=== PATIENT | female | born 1930 | race Caucasian/White ===

== ENCOUNTER → 2017-05-10 | Outpatient (CLI) | payer MEDICARE, MEDICAID ==
[~2017-05-10] MED LIST: ACET325T38 PO; ALPR0.254 PO; AMIO200T2 PO; APIX5TAB PO; ASP325T PO; ASPI-808 PO; CHLO4TAB PO; CHOL400T3 PO; CRAN1CAP5 PO; CYAN10007 PO; CYAN500L PO; ESTR10TA VG; FAMO1TAB21 PO; GLUC1CAP37 PO; LORA10TA7 PO; MAGN250T13 PO; METO-333 PO; MULT-63 PO; MULT-974 PO; MV-M1TAB27 PO; OMEG-25 PO
== END ==
LOC: CARD 08:42
PROVIDERS: ATTEND Internal Medicine Cardiovascular Disease
DX: I48.1 Persistent atrial fibrillation (principal); I25.10 Atherosclerotic heart disease of native coronary artery without angina pectoris; R07.89 Other chest pain; R00.2 Palpitations
CPT/HCPCS: 93306

== ENCOUNTER → 2017-11-22 | Outpatient (CLI) | payer MEDICARE, MEDICAID ==
--- NOTE | 2017-11-22 15:08 | Diagnostic Imaging Report ---
INDICATION: Routine screening. COMPARISON: 02/09/2016 and 02/16/2014. TECHNIQUE: Screening digital mammography was performed bilaterally with a Computer Aided Detection (CAD) system. FINDINGS: Moderate parenchymal density is noted bilaterally. The right breast is stable. There is a nodular density in the retroareolar left breast which also appears stable and likely benign. There is a density noted at mid depth in the left breast inferiorly which appears more prominent when compared with the prior exams. Additional views are recommended. No suspicious calcifications are seen. The axillae are unremarkable. IMPRESSION: Left breast density. Additional views are recommended. ACR BI-RADS Category 0: Incomplete. (Needs additional imaging evaluation). Result letter will be mailed to the patient. Note: At least 10% of breast cancer is not imaged by mammography. Dictated by: Dictated on workstation # [id number]
== END ==
LOC: RAD 10:44
PROVIDERS: ATTEND Nurse Practitioner Family
DX: Z12.31 Encounter for screening mammogram for malignant neoplasm of breast (principal)
CPT/HCPCS: 77067

== ENCOUNTER → 2017-12-06 | Outpatient (CLI) | payer MEDICARE, MEDICAID ==
--- NOTE | 2017-12-06 12:07 | Diagnostic Imaging Report ---
Indication: Left breast density. Patient presents for additional views. Comparison is made with recent screening study from 11/22/2017. Patient return in a 3-D 90 degree lateral view as well as spot compression CC and ML 3-D mammography was performed. The current study was also evaluated with a Computer Aided Detection (CAD) system. There is a persistent fairly well circumscribed nodular density in the inferior left breast approximately 6 clock location 5 cm from the nipple. No associated calcifications are seen. IMPRESSION: BI-RADS zero Persistent circumscribed nodular density 6 o'clock location of the left breast 5 cm from the nipple. Further evaluation with ultrasound is recommended. ACR BI-RADS Category 0: Incomplete. (Needs additional imaging evaluation). Result letter will be mailed to the patient. Note: At least 10% of breast cancer is not imaged by mammography. Dictated by: Dictated on workstation # [id number]
--- NOTE | 2017-12-06 12:08 | Diagnostic Imaging Report ---
Indication: Left breast density. This study is performed for further evaluation. Correlation is made with diagnostic mammogram earlier same day. Sonographic interrogation of the inferior left breast was performed. There is a simple cyst at the 6 o'clock location of the left breast approximately 5 mm x 5 mm in diameter. This likely accounts for the mammographic density. No solid masses are seen. IMPRESSION: Simple cyst left breast 6 o'clock location, likely accounting for the mammographic density. The patient may return to routine annual screening mammography. BI-RADS category 2 ACR BI-RADS Category 2: Benign findings. Dictated by: Dictated on workstation # [id number]
== END ==
LOC: RAD 10:34
PROVIDERS: ATTEND Nurse Practitioner Family
DX: N60.02 Solitary cyst of left breast (principal)
CPT/HCPCS: 76642

== ENCOUNTER → 2019-05-26 | Outpatient (CLI) | payer MEDICARE, MEDICAID ==
[~2019-05-26] MED LIST changes: -AMIO200T2 PO; +AMIO200T4 PO
--- NOTE | 2019-05-27 18:29 | Diagnostic Imaging Report ---
EXAMINATION: Digital mammogram bilateral screening. The current study was also evaluated with a Computer Aided Detection (CAD) system. 3-D tomosynthesis was also performed and reviewed. INDICATION: Screening. COMPARISON: This study was compared to the prior exams of 11/22/2017, 02/29/2016 and 02/16/2014. At this time, there are no current complaints. FINDINGS: The fibroglandular tissue in both breasts is heterogeneously dense. This does limit the sensitivity of this exam. Overall, there does not appear to have been any significant change when compared to the prior study. No primary or secondary sign of malignancy is noted. 3D tomographic images fail to show any sign of malignancy. The loop recorder device overlying the left breast seen previously is again evident. IMPRESSION: There is no radiographic evidence for malignancy. ACR BI-RADS Category 1: Negative. Result letter will be mailed to the patient. Note: At least 10% of breast cancer is not imaged by mammography. Dictated by: Dictated on workstation # [id number]
== END ==
LOC: RAD 10:01
PROVIDERS: ATTEND Obstetrics & Gynecology
DX: Z12.31 Encounter for screening mammogram for malignant neoplasm of breast (principal)
CPT/HCPCS: 77067

== ENCOUNTER → 2021-02-22 | Outpatient (CLI) | payer MEDICARE, MEDICAID ==
[~2021-02-22] VITALS: Ht 165 cm; Wt 74.0 kg
[~2021-02-22] MED LIST changes: +ALPR.25T PO; -ALPR0.254 PO; -AMIO200T4 PO; +AMIO200T6 PO; +CATHETER FLUSH 10 ML SYR IV PRN; +REGADENOSON 0.4 MG/5 ML SYR (LEXISCAN) IV ONE
[2021-02-22 13:54] VITALS: BP 173/64
[2021-02-22 14:01] VITALS: BP 128/51
--- NOTE | 2021-02-22 15:36 | Cardiology Stress Test Report ---
Stress Test Report Date of Procedure/Referring: Date of Procedure: Feb 22, 2021 Krystal Ruiz Admitting Physician Valeria Rivera MD Indications: a fib Baseline Heart Rate: 53 Baseline Blood Pressure: Blood Pressure Systolic: 128 Blood Pressure Diastolic: 51 Baseline Vitals Vital Signs Date Time Temp Pulse Resp B/P (MAP) Pulse Ox O2 Delivery O2 Flow Rate FiO2 02/22/21 13:54 63 18 173/64 (100) 98 Room Air Baseline EKG: Baseline EKG: Normal sinus rhythm Summary After explaining the procedure to the patient, she signed a consent and then brought to the stress nuclear laboratory. Patient received 0.4 mg Lexiscan for stress test, ECG, heart rate and blood pressure were monitored continuously. Resting and stress dose of radio tracer were injected, imaging was acquired and reviewed in short axis, horizontal long axis and vertical long axis views. TID: 0.95 SSS: 7 SDS: 4 EF: 77 1. Patient tolerated Lexiscan well 2. Breast attenuation with typical female pattern, no ischemia or infarction were noted on SPECT images 3. Normal left ventricular size, EF 77% HERBER BADILLO MD Feb 22, 2021 15:36
== END ==
LOC: CARD 11:23
PROVIDERS: ATTEND Physician Assistant
DX: I08.3 Combined rheumatic disorders of mitral, aortic and tricuspid valves (principal); I48.0 Paroxysmal atrial fibrillation; I11.9 Hypertensive heart disease without heart failure; E78.2 Mixed hyperlipidemia
CPT/HCPCS: 78452; 93017; 93306

== ENCOUNTER 2021-02-27 09:45 | Day surgery (SDC) | payer MEDICARE, MEDICAID ==
[~2021-02-27] VITALS: Ht 165 cm; Wt 74.0 kg
[~2021-02-27 09:45] MED LIST changes: -CATHETER FLUSH 10 ML SYR IV PRN; -REGADENOSON 0.4 MG/5 ML SYR (LEXISCAN) IV ONE
[2021-02-27] MEDS ORDERED: LIDOCAINE 1% INJ 20 ML 20 ML VIAL ONE (09:48)
[2021-02-27 10:07] VITALS: BP 144/85
--- NOTE | 2021-02-27 11:38 | Implantation of Loop Monitor ---
Implant of Loop Monitior IMPLANTATION OF LOOP MONITOR REPORT DATE OF PROCEDURE: 02/27/21 PREOP DIAGNOSIS: Paroxysmal atrial fibrillation POSTOP DIAGNOSIS: Paroxysmal atrial fibrillation PROCEDURE DETAILS: The patient is a 89 female with history of paroxysmal atrial fibrillation requiring long-term surveillance. Therefore implantable loop recorder was discussed and agreed with the patient. Informed consent was taken. All risks and complications were discussed at length. The patient was draped and prepped in the usual sterile fashion. Local anesthesia was lidocaine, which was given in the substernal area close to the 4th intercostal space. Loop monitor [employer] with serial number [id number] was implanted according to the protocol. Steri- Strips were placed at the end of the procedure. There were no complications and the patient tolerated the procedure well. ANESTHESIA: Local anesthesia with lidocaine. COMPLICATIONS: None CONTRAST/FLUOROSCOPY: None CONCLUSION: Successful implantation of loop monitor with no complication FINAL DIAGNOSIS: Paroxysmal atrial fibrillation Palpitation Hypertension Hyperlipidemia HERBER BADILLO MD Feb 27, 2021 11:38 am
== END 2021-02-27 11:45 | disposition home or self-care (01) ==
LOC: CATH 09:45
PROVIDERS: ATTEND Internal Medicine Cardiovascular Disease
DX: I48.0 Paroxysmal atrial fibrillation (principal); I10 Essential (primary) hypertension; G47.33 Obstructive sleep apnea (adult) (pediatric); G47.10 Hypersomnia, unspecified; I48.19 Other persistent atrial fibrillation; K21.9 Gastro-esophageal reflux disease without esophagitis; I65.23 Occlusion and stenosis of bilateral carotid arteries; E78.2 Mixed hyperlipidemia; F41.9 Anxiety disorder, unspecified; E66.9 Obesity, unspecified; Z68.27 Body mass index [BMI] 27.0-27.9, adult; Z79.82 Long term (current) use of aspirin; Z79.899 Other long term (current) drug therapy; Z88.8 Allergy status to other drugs, medicaments and biological substances; Z88.1 Allergy status to other antibiotic agents; Z88.2 Allergy status to sulfonamides; Z87.891 Personal history of nicotine dependence; Z83.3 Family history of diabetes mellitus; Z80.9 Family history of malignant neoplasm, unspecified
CPT/HCPCS: 33285

== ENCOUNTER 2021-11-14 13:34 | Inpatient (IN) | payer MEDICARE, MEDICAID ==
[~2021-11-14] VITALS: Ht 165 cm; Wt 76.9 kg
[~2021-11-14 13:34] MED LIST changes: -AMIO200T6 PO; +AMIO200T65 PO
--- NOTE | 2021-11-14 13:54 | ED Fall/Injury ---
General Stated Complaint: L FEMUR PAIN , FALL Source: patient Exam Limitations: no limitations (RIC BHAGAT STUDENT) History of Present Illness Date Seen by Provider: Nov 14, 2021 Time Seen by Provider: 13:40 Initial Comments Ms. Crocker is an 89yoF who presents via EMS with L hip pain after falling around 1245 while putting on her shoe. She did not hit her head, lose consciousness, or sustain any other injuries during fall. She is active and lives alone with frequent assistance from an "elderly care company". She has never had any other falls. Patient reports no prior surgical history and has history of afib status post cardioversion 11/2015. She takes Metoprolol, ASA and Multaq daily. Patient is in significant pain and has been given Fentanyl for pain control before full examination is completed. Severity: moderate Injuries/Pain Location: lower extremity (left hip) Context: lost balance Loss of Consciousness: no loss of consciousness Modifying Factors: Improves With Movement Associated Symptoms (Fall): No Abdominal Pain, No Chest Pain, No Dizziness, No Headache, No Neck Pain, No Shortness of Air (RIC BHAGAT STUDENT) Allergies and Home Medications Allergies Coded Allergies: Paroxetine (Unverified Allergy, Mild, HIVES, 04/27/14) esomeprazole (Unverified Allergy, Mild, HIVES, 04/27/14) Patient Home Medication List Home Medication List Reviewed: Yes (JESSICA GRANGER MD) ALPRAZolam (Xanax Tablet) 0.25 Mg Tablet, 0.25 MG PO HS PRN for ANXIETY, (Reported) Entered as Reported by: LUIS F ROBERTS on 09/14/15 1038 Amiodarone HCl (Amiodarone HCl) 200 Mg Tablet, 200 MG PO DAILY, (Reported) Entered as Reported by: LUIS F ROBERTS on 11/30/15 0918 Apixaban (Eliquis) 5 Mg Tablet, 5 MG PO BID, (Reported) Entered as Reported by: LUIS F ROBERTS on 09/14/15 1038 Chlorpheniramine Maleate (Chlor-Trimeton) 4 Mg Tablet, 4 MG PO HS, (Reported) Entered as Reported by: LUIS F ROBERTS on 09/14/15 1038 Cranberry Extract/Vit C (Azo Cranberry Softgel) 1 Each Capsule, 2 CAP PO HS PRN for URINARY HEALTH, (Reported) Entered as Reported by: RIC MERA on 04/27/14 1433 Cyanocobalamin (Vitamin B-12) (Vitamin B-12) 500 Mcg Lozenge, 1,000 MCG PO DAILY, (Reported) Entered as Reported by: LUIS F ROBERTS on 09/14/15 1038 Estradiol (Vagifem) 10 Mcg Tablet, 10 MCG VG THUR, (Reported) Entered as Reported by: RIC MERA on 04/27/14 1427 Famotidine/Calcium Carb/Mag (Pepcid Complete Tablet Chew) 1 Each Tab.chew, 1 TAB PO DAILY PRN for HEART BURN, (Reported) Entered as Reported by: RIC MERA on 04/27/14 1433 Glucosa Little 2Kcl/Chondroitin Little (Glucosamine & Chondroitin Cap) 1 Each Capsule, 1 CAP PO DAILY, (Reported) Entered as Reported by: LUIS F ROBERTS on 11/30/15 0918 Magnesium Oxide (Magnesium) 250 Mg Tablet, 250 MG PO DAILY, (Reported) Entered as Reported by: LUIS F ROBERTS on 09/14/15 1038 Metoprolol Tartrate (Metoprolol Tartrate) 25 Mg Tablet, 25 MG PO BID, (Reported) Entered as Reported by: LUIS F ROBERTS on 09/14/15 1038 Multivitamin (Multivitamins) 1 Each Tab.chew, 2 TAB.CHEW PO DAILY, (Reported) Entered as Reported by: LUIS F ROBERTS on 09/14/15 1038 Mv-Min/Vit C/Glu/Brisa HCl/Hc124 (Airborne Tablet Chewable) 1 Each Tab.chew, 1 TAB PO DAILY PRN for BOOST IMMUNE SYSTEM, (Reported) Entered as Reported by: RIC MERA on 04/27/14 1435 Braman-3S/Dha/Epa/Fish Oil (Fish Oil EC 1,200 mg Softgel) 1 Each Capsule.dr, 1 CAP PO DAILY, (Reported) Entered as Reported by: LUIS F ROBERTS on 09/14/15 1038 Review of Systems Review of Systems Constitutional: No chills, No dizziness, No fever, No weakness Eyes: Denies Blurred Vision, Denies Vision Changes Ears, Nose, Mouth, Throat: denies ear pain, denies epistaxis Respiratory: No cough, No short of breath, No wheezing Cardiovascular: No chest pain, No palpitations Gastrointestinal: No diarrhea, No loss of appetite, No vomiting Genitourinary: No frequency, No hematuria Musculoskeletal: No back pain; other (severe left hip pain) Skin: no symptoms reported Psychiatric/Neurological: Denies Anxiety, Denies Depressed, Denies Numbness, Denies Paresthesia (RIC BHAGAT Illumagear STUDENT) Past Mpdkwmo-Tkrtig-Ixsxrt Hx Past Medical History Respiratory: No Cardiac: Yes Gastrointestinal: No Gastroesophageal Reflux Cancer: No (RIC BHAGAT Illumage[employer] STUDENT) Physical Exam Vital Signs Vital Signs - First Documented 11/14/21 13:35 Temp 36.5 Pulse 54 Resp 18 B/P (MAP) 164/81 (108) Pulse Ox 96 O2 Delivery Room Air (JESSICA GRANGER MD) Vital Signs Capillary Refill : (RIC BHAGAT STUDENT) Height, Weight, BMI Height: 5'5.00" Weight: 170lbs. oz. 77.390618jf; 27.18 BMI Method: General Appearance: WD/WN, no apparent distress HEENT: PERRL/EOMI, pharynx normal Neck: non-tender, supple, normal inspection Cardiovascular: normal peripheral pulses, regular rate, rhythm, no murmur Respiratory: chest non-tender, lungs clear, normal breath sounds, no respiratory distress, no accessory muscle use Gastrointestinal: normal bowel sounds, non tender, soft Neurologic/Psychiatric: contract clerk automobile II-XII nml as tested, no motor/sensory deficits, alert, normal mood/affect, oriented x 3 Skin: normal color, warm/dry Lymphatic: no adenopathy (RIC BHAGAT Illumagear STUDENT) Progress/Results/Core Measures Results/Orders Lab Results Laboratory Tests Test 11/14/21 13:48 Range/Units White Blood Count 5.8 4.3-11.0 10^3/uL Red Blood Count 4.02 3.80-5.11 10^6/uL Hemoglobin 13.2 11.5-16.0 g/dL Hematocrit 38 35-52 % Mean Corpuscular Volume 95 80-99 fL Mean Corpuscular Hemoglobin 33 25-34 pg Mean Corpuscular Hemoglobin Concent 35 32-36 g/dL Red Cell Distribution Width 12.4 10.0-14.5 % Platelet Count 143 130-400 10^3/uL Mean Platelet Volume 9.5 9.0-12.2 fL Immature Granulocyte % (Auto) 1 % Neutrophils (%) (Auto) 62 42-75 % Lymphocytes (%) (Auto) 27 12-44 % Monocytes (%) (Auto) 8 0-12 % Eosinophils (%) (Auto) 2 0-10 % Basophils (%) (Auto) 1 0-10 % Neutrophils # (Auto) 3.6 1.8-7.8 10^3/uL Lymphocytes # (Auto) 1.5 1.0-4.0 10^3/uL Monocytes # (Auto) 0.5 0.0-1.0 10^3/uL Eosinophils # (Auto) 0.1 0.0-0.3 10^3/uL Basophils # (Auto) 0.0 0.0-0.1 10^3/uL Immature Granulocyte # (Auto) 0.0 0.0-0.1 10^3/uL Percent Immature Platelet Fraction 1.5 0.0-7.6 % Sodium Level 134 L 135-145 MMOL/L Potassium Level 3.9 3.6-5.0 MMOL/L Chloride Level 99 98-107 MMOL/L Carbon Dioxide Level 24 21-32 MMOL/L Anion Gap 11 5-14 MMOL/L Blood Urea Nitrogen 15 7-18 MG/DL Creatinine 0.89 0.60-1.30 MG/DL Estimat Glomerular Filtration Rate 60 BUN/Creatinine Ratio 17 Glucose Level 104 70-105 MG/DL Calcium Level 9.0 8.5-10.1 MG/DL (JESSICA GRANGER MD) My Orders Orders - JESSICA GRANGER MD Ed Iv/Invasive Line Start (11/14/21 13:48) Cbc With Automated Diff (11/14/21 13:48) Basic Metabolic Panel (11/14/21 13:48) Pelvis With Left Hip 2-3 Views (11/14/21 13:48) Chest 1 View, Ap/Pa Only (11/14/21 13:48) Ekg Tracing (11/14/21 13:48) Fentanyl Inj (Sublimaze Injection) (11/14/21 14:00) Ondansetron Injection (Zofran Injectio (11/14/21 14:00) Fentanyl Inj (Sublimaze Injection) (11/14/21 14:38) (JESSICA GRANGER MD) Medications Given in ED Current Medications Medications Dose Ordered Sig/Kirk Route Start Time Stop Time Status Last Admin Dose Admin Fentanyl Citrate 50 mcg ONCE ONCE IVP 11/14/21 14:00 11/14/21 14:01 DC 11/14/21 13:53 50 MCG Ondansetron HCl 4 mg ONCE ONCE IVP 11/14/21 14:00 11/14/21 14:01 DC 11/14/21 14:02 4 MG (JESSICA GRANGER MD) Vital Signs/I&O 11/14/21 13:35 Temp 36.5 Pulse 54 Resp 18 B/P (MAP) 164/81 (108) Pulse Ox 96 O2 Delivery Room Air (JESSICA GRANGER MD) Progress Progress Note : Time: 15:30 Progress Note 89-year-old female presents with a mechanical trip and fall onto her left hip. Did not hit her head, no loss of consciousness. No other complaints of recent illness or injury. Significant pain noted to the left hip with out any bruising, lacerations or abrasion. Distal neurovascularly intact to the left hip. Left leg is held in flexion and external rotation. She has required several doses of IV fentanyl to achieve modest pain relief. X-rays reviewed, left femoral neck fracture that appears slightly impacted. Case was discussed with Dr. Morales and the patient's primary care physician, Dr. Rivera. Patient will be given some IV fluids, n.p.o. after midnight. I have discussed findings with the patient as well as her daughter who is at the bedside. All questions are sought and answered. Of note patient is a Christianity, declines blood products. Is also a DNR. (JESSICA GRANGER MD) Initial ECG Impression Date: Nov 14, 2021 Initial ECG Impression Time: 14:00 Initial ECG Rate: 52 Initial ECG Rhythm: S.Charanjit Initial ECG Intervals NM interval 236 QRS 104 QTc 423 Comment First-degree AV block, nonspecific ST-T wave changes over the precordium minimal depression in leads V5 and V6, artifact at the baseline V4 precludes interpretation. PACs noted (JESSICA GRANGER MD) Diagnostic Imaging Diagonstic Imaging: Xray Comments [facility] [place] [place] NAME: WILLA CROCKER REC#: [id number] PT STATUS: REG ER : 1930 PHYSICIAN: JESSICA GRANGER MD ADMIT DATE: 11/14/21/ER Draft Date of Exam:11/14/21 PELVIS WITH LEFT HIP 2-3 VIEWS INDICATION: Fall with left hip pain AP pelvis and AP and lateral views of the left hip are obtained at 02:38 p.m. There is an acute displaced fracture of the left femoral neck, with lateral superior displacement of the distal fragment relative to the proximal fragment. There is underlying osteopenia. There are degenerative changes in both hips of moderate severity. IMPRESSION: Acute femoral neck fracture on the left side, as described above. Dictated on workstation # [id number] Dict: 11/14/21 144 Trans: 11/14/21 1445 [facility] [id number] Interpreted by: LIANET MORALES MD Electronically signed by: [place]AR[place], [place] NAME: WILLA CROCKER [facility] REC#: [id number] PT STATUS: REG ER : 1930 PHYSICIAN: JESSICA GRANGER MD ADMIT DATE: 11/14/21/ER Draft Date of Exam:11/14/21 CHEST 1 VIEW, AP/PA ONLY EXAM: CHEST 1 VIEW, AP/PA ONLY. INDICATION: Fall. Left hip pain. COMPARISON: 11/30/2015. FINDINGS: Normal heart size and central pulmonary vascularity. Calcified aorta. Implanted loop recorder. No pleural effusion or pneumothorax. No acute osseous findings. IMPRESSION: No acute cardiopulmonary findings. Dictated on workstation # [id number] Dict: 11/14/21 144 Trans: 11/14/21 144 [id number] Interpreted by: TSERING JACKSON MD Electronically signed by: (JESSICA GRANGER MD) Departure Communication (Admissions) Time/Spoke to Admitting Phy: 11:[address] Rivera Time/Spoke to Consulting Phy: 14:[address] Morales (JESSICA GRANGER MD) Impression Primary Impression: Closed left hip fracture Qualified Codes: S72.002A - Fracture of unspecified part of neck of left femur, initial encounter for closed fracture Disposition: ADMITTED INPATIENT Condition: Stable Admissions Decision to Admit Reason: Admit from ER (General) Decision to Admit/Date: Nov 14, 2021 Time/Decision to Admit Time: 15:04 (JESSCIA GRANGER MD) Departure-Patient Inst. Referrals: DOROTHEA RIVERA MD (PCP/Family) Primary Care Physician Verification and Attestation of Medical Student E/M Service A medical student performed and documented this service in my presence. I reviewed and verified all information documented by the medical student and made modifications to such information, when appropriate. I personally performed the physical exam and medical decision making. Jessica Granger, Nov 14, 2021,14:10 (JESSICA GRANGER MD) RIC BHAGAT MED STUDENT Nov 14, 2021 13:54 JESSICA GRANGER MD Nov 14, 2021 14:11
[2021-11-14] MEDS ORDERED: ONDANSETRON 4 MG/2 ML (SDV) Z0FRAN IVP ONE (14:00)
[2021-11-14] MEDS ORDERED: fentaNYL INJ 100 MCG/2 ML AMP IVP ONE (14:00)
[2021-11-14 14:03] LABS: BASOPHILS % (AUTO) 1 % (0-10); EOSINOPHILS # (AUTO) 0.1 10^3/uL (0.0-0.3); EOSINOPHILS % (AUTO) 2 % (0-10)
[2021-11-14 14:04] LABS: HEMATOCRIT 38 % (35-52); HEMOGLOBIN 13.2 g/dL (11.5-16.0); LYMPHOCYTES # (AUTO) 1.5 10^3/uL (1.0-4.0); LYMPHOCYTES % (AUTO) 27 % (12-44); MEAN CORPUSCULAR HEMOGLOBIN 33 pg (25-34); MEAN CORPUSCULAR HGB CONC 35 g/dL (32-36); MEAN CORPUSCULAR VOLUME 95 fL (80-99); MEAN PLATELET VOLUME 9.5 fL (9.0-12.2); MONOCYTES # (AUTO) 0.5 10^3/uL (0.0-1.0); MONOCYTES % (AUTO) 8 % (0-12); NEUTROPHILS # (AUTO) 3.6 10^3/uL (1.8-7.8); NEUTROPHILS % (AUTO) 62 % (42-75); PLATELET COUNT 143 10^3/uL (130-400); WHITE BLOOD COUNT 5.8 10^3/uL (4.3-11.0)
[2021-11-14 14:11] LABS: POTASSIUM 3.9 MMOL/L (3.6-5.0)
[2021-11-14 14:16] LABS: CREATININE SERUM 0.89 MG/DL (0.60-1.30)
[2021-11-14] MEDS ORDERED: fentaNYL INJ 100 MCG/2 ML AMP IVP STA (14:38)
--- NOTE | 2021-11-14 14:45 | Diagnostic Imaging Report ---
INDICATION: Fall with left hip pain AP pelvis and AP and lateral views of the left hip are obtained at 02:38 p.m. There is an acute displaced fracture of the left femoral neck, with lateral superior displacement of the distal fragment relative to the proximal fragment. There is underlying osteopenia. There are degenerative changes in both hips of moderate severity. IMPRESSION: Acute femoral neck fracture on the left side, as described above. Dictated by: Dictated on workstation # [id number]
--- NOTE | 2021-11-14 14:45 | Diagnostic Imaging Report ---
EXAM: CHEST 1 VIEW, AP/PA ONLY. INDICATION: Fall. Left hip pain. COMPARISON: 11/30/2015. FINDINGS: Normal heart size and central pulmonary vascularity. Calcified aorta. Implanted loop recorder. No pleural effusion or pneumothorax. No acute osseous findings. IMPRESSION: No acute cardiopulmonary findings. Dictated by: Dictated on workstation # [id number]
--- NOTE | 2021-11-14 16:01 | Progress Note ---
Standard Progress Note Progress Notes/Assess & Plan Date Seen by a Provider: Nov 14, 2021 Time Seen by a Provider: 16:00 Progress/Assessment & Plan consult dictated plan for L eft hip bipolar replacement tomorrow LUIS PONCE MD Nov 14, 2021 16:01
[2021-11-14] MEDS ORDERED: DRON400T6 PO (16:28)
[2021-11-14] MEDS ORDERED: ASPI-1238 PO (16:29)
[2021-11-14 17:00] VITALS: BP 154/69
[2021-11-14] MEDS ORDERED: ONDANSETRON 4 MG/2 ML (SDV) Z0FRAN IVP PRN (17:00)
[2021-11-14] MEDS ORDERED: fentaNYL INJ 100 MCG/2 ML AMP IVP PRN (17:00)
[2021-11-14 17:02] VITALS: BP 164/81
[2021-11-14] MEDS: NS IV 1000 ML 1,000 ML IV SCH (17:10)
[2021-11-14] MEDS ORDERED: RT-ALBUTEROL SULF 2.5 MG/3 ML PRE-MIX VIAL INH PRN (17:15)
[2021-11-14] MEDS ORDERED: ALPRAZolam 0.25 MG (XANAX) TAB PO ONE (18:00)
[2021-11-14] MEDS ORDERED: ALPRAZolam 0.25 MG (XANAX) TAB PO PRN (18:00)
[2021-11-14] MEDS: fentaNYL INJ 100 MCG/2 ML AMP IVP PRN ×3 (18:15→23:18)
--- NOTE | 2021-11-14 18:57 | CONSULTATION REPORT ---
DATE OF SERVICE: 11/14/2021 INPATIENT CONSULTATION REASON FOR CONSULTATION: Left femoral neck fracture. HISTORY OF PRESENT ILLNESS: The patient is an 89-year-old female, who is independently living, who fell earlier this afternoon while putting on her shoe. She was found to have a displaced left femoral neck fracture for which I was consulted. She denies a prior history of hip problems. PAST MEDICAL HISTORY: Significant for atrial fibrillation. MEDICATIONS: Metoprolol, aspirin, alprazolam, amiodarone, cranberry, estradiol, , and magnesium. ALLERGIES: PAROXETINE and ESOMEPRAZOLE. ORTHOPEDIC PHYSICAL EXAMINATION: The left lower extremity is slightly shortened and externally rotated. She has symmetric pulses. She has intact dorsiflexion and plantarflexion of the toes. Sensation is intact to light touch throughout. IMAGING: Radiographs reveal displaced shortened left femoral neck fracture. PLAN: Left hip bipolar replacement. The risks, benefits, options, ramifications and recovery were discussed at length with the patient. She understands and wishes to proceed. Job ID: [id number] DocumentID: [id number] Dictated Date: 11/14/2021 16:00:37 Psychologist Chief Date: 11/14/2021 18:56:24 Dictated By: LUIS PONCE MD
[2021-11-14 20:12] VITALS: BP 142/65
[2021-11-15] VITALS (12 sets, daily range): BP systolic 119–136; BP diastolic 57–68
[2021-11-15] MEDS: fentaNYL INJ 100 MCG/2 ML AMP IVP PRN ×2 (04:28→08:03)
[2021-11-15] MEDS: NS IV 1000 ML 1,000 ML IV SCH (07:35)
--- NOTE | 2021-11-15 08:59 | History & Physical ---
History of Present Illness History of Present Illness Reason for visit/HPI PT IS AN 89 Y/O FEMALE WHO WAS ADMITTED TO THIS PROVIDER AFTER SUSTAINING A FALL AT HOME. SHE REPORTS THAT SHE WAS ATTEMPTING TO PUT ON A SHOE, LOST HER BALANCE AND FELL OVER ONTO HER LEFT HIP. SHE HAD IMMEDIATE PAIN, AND WAS TRANSPORTED TO THE HOSPITAL WHERE SHE WAS FOUND TO HAVE A HIP FRACTURE. SHE WAS ADMITTED TO THE HOSPITAL FOR SURGICAL INTERVENTION/STABILIZATION OF FRACTURE. Date of Admission Nov 14, 2021 at 14:49 Date Seen by a Provider: Nov 15, 2021 Time Seen by a Provider: 08:50 I consulted on this patient on 11/15/21 08:59 Attending Physician Dorothea Rivera MD Admitting Physician Dorothea Rivera MD Consult Allergies and Home Medications Allergies Coded Allergies: esomeprazole (Unverified Allergy, Mild, HIVES, 04/27/14) paroxetine (Unverified Allergy, Mild, HIVES, 04/27/14) nitrofurantoin (Verified Allergy, Unknown, 11/15/21) sulfamethoxazole (Verified Allergy, Unknown, HIVES, 11/14/21) trimethoprim (Verified Allergy, Unknown, HIVES, 11/14/21) Patient Home Medication List Home Medication List Reviewed: Yes ALPRAZolam (Xanax Tablet) 0.25 Mg Tablet, 0.25 MG PO HS PRN for ANXIETY, (Reported) Entered as Reported by: LUIS F ROBERTS on 09/14/15 1038 Last Action: Reviewed Ascorbic Acid (Vitamin C) 60 Mg Lozenge, 60 MG PO UD PRN for SORE THROAT, (Reported) Entered as Reported by: RAVI KEARNS on 11/15/21938 Last Action: Held Aspirin (Aspirin EC) 81 Mg Tablet.dr, 81 MG PO HS, (Reported) Entered as Reported by: RAVI KEARNS on 11/15/21938 Last Action: Continued Biotin (Biotin) 1,000 Mcg Tablet, 1,000 MCG PO DAILY, (Reported) Entered as Reported by: RAVI KEARNS on 11/15/21938 Last Action: Held Dronedarone HCl (Multaq) 400 Mg Tablet, 400 MG PO BID, (Reported) Entered as Reported by: RAVI KEARNS on 11/15/21938 Last Action: Continued Estradiol (Estradiol) 10 Mcg Tablet, 10 MCG VG WED, (Reported) Entered as Reported by: RAVI KEARNS on 11/15/21938 Last Action: Held Fish Oil/Dha/Epa (Fish Oil 1,200 mg Fish Oil) 1 Each Capsule, 1 EACH PO DAILY, (Reported) Entered as Reported by: RAVI KEARNS on 11/15/21938 Last Action: Held Magnesium Oxide (Magnesium) 250 Mg Tablet, 250 MG PO DAILY, (Reported) Entered as Reported by: LUIS F ROBERTS on 09/14/15 1038 Last Action: Converted Metoprolol Tartrate (Metoprolol Tartrate) 25 Mg Tablet, 12.5 MG PO BID, (Reported) Entered as Reported by: LUIS F ROBERTS on 09/14/15 1038 Last Action: Continued Multivitamin (Multivitamin) 1 Each Tablet, 1 EACH PO DAILY, (Reported) Entered as Reported by: RAVI KEARNS on 11/15/21938 Last Action: Held [Famotidine/Calc/Mag] , 1-2 EA PO DAILY PRN for HEARTBURN, (Reported) Entered as Reported by: RAVI KEARNS on 11/15/21938 Last Action: Held [Slippery Elm] CAP, 1 EA PO DAILY, (Reported) Entered as Reported by: RAVI KEARNS on 11/15/21941 Last Action: Held Discontinued Medications Amiodarone HCl (Amiodarone HCl) 200 Mg Tablet, 200 MG PO DAILY, (Reported) Discontinued Reason: No Longer Taking Entered as Reported by: LUIS F ROBERTS on 11/30/15 0918 Last Action: Discontinued Apixaban (Eliquis) 5 Mg Tablet, 5 MG PO BID, (Reported) Discontinued Reason: No Longer Taking Entered as Reported by: LUIS F ROBERTS on 09/14/15 1038 Last Action: Discontinued Aspirin (Aspirin EC) 81 Mg Tablet.dr, 81 MG PO DAILY Discontinued Reason: No Longer Taking Prescribed by: WILLIE AYERS on 11/14/21 1629 Last Action: Discontinued Chlorpheniramine Maleate (Chlor-Trimeton) 4 Mg Tablet, 4 MG PO HS, (Reported) Discontinued Reason: No Longer Taking Entered as Reported by: LUIS F ROBERTS on 09/14/15 1038 Last Action: Discontinued Cranberry Extract/Vit C (Azo Cranberry Softgel) 1 Each Capsule, 2 CAP PO HS PRN for URINARY HEALTH, (Reported) Discontinued Reason: No Longer Taking Entered as Reported by: RIC MERA on 04/27/14 143 Last Action: Discontinued Cyanocobalamin (Vitamin B-12) (Vitamin B-12) 500 Mcg Lozenge, 1,000 MCG PO DAILY, (Reported) Discontinued Reason: No Longer Taking Entered as Reported by: LUIS F ROBERTS on 09/14/15 1038 Last Action: Discontinued Dronedarone HCl (Multaq) 400 Mg Tablet, 400 MG PO DAILY Discontinued Reason: No Longer Taking Prescribed by: WILLIE AYERS on 11/14/21 1628 Last Action: Discontinued Famotidine/Calcium Carb/Mag (Pepcid Complete Tablet Chew) 1 Each Tab.chew, 1 TAB PO DAILY PRN for HEART BURN, (Reported) Discontinued Reason: Prescription changed Entered as Reported by: RIC MERA on 04/27/14 143 Last Action: Reviewed Glucosa Little 2Kcl/Chondroitin Little (Glucosamine & Chondroitin Cap) 1 Each Capsule, 1 CAP PO DAILY, (Reported) Discontinued Reason: No Longer Taking Entered as Reported by: LUIS F ROBERTS on 11/30/15 0918 Last Action: Discontinued Mv-Min/Vit C/Glu/Brisa HCl/Hc124 (Airborne Tablet Chewable) 1 Each Tab.chew, 1 TAB PO DAILY PRN for BOOST IMMUNE SYSTEM, (Reported) Discontinued Reason: Duplicate Order Entered as Reported by: RIC MERA on 04/27/14 1435 Last Action: Discontinued Anderson-3S/Dha/Epa/Fish Oil (Fish Oil EC 1,200 mg Softgel) 1 Each Capsule.dr, 1 CAP PO DAILY, (Reported) Discontinued Reason: Prescription changed Entered as Reported by: LUIS F ROBERTS on 09/14/15 1038 Last Action: Reviewed Past [id number]-[id number] Hx Patient Social History Marrital Status: Living Status: LIVES IN APARTMENT IN [place] BY HERSELF Employed/Student: retired Tobacco Use?: No Smoking Status: Never a Smoker Smokeless Tobacco Frequency: Never a User Use of E-Cig and/or Vaping dev: No Use of E-Cig and/or Vaping Cruz: Never a User Substance use?: No Alcohol Use?: No Pt feels they are or have been: No Immunizations Up To Date Date of Influenza Vaccine: Aug 10, 2021 First/Initial COVID19 Vaccinat: 2020 Second COVID19 Vaccination [place]: 2020 Tetanus Booster (TDap): Unknown Hepatitis A: No Hepatitis B: No Date of Pneumonia Vaccine: Sep 14, 2012 Current Status status: No status: No Advance Directives: Yes Advance Directive Location: Copy placed in chart Communicates: Verbally Primary Language: Syriac Preferred Spoken Language: Syriac Is interpretation needed?: No Sensory deficits: Vision impairment Implanted or Applied Medical D: None Past Medical History Surgeries: Breast (BIOPSY/REMOVAL OF FIBROID), Orthopedic (RIGHT KNEE SCOPE) Sleep Apnea Currently Using CPAP: No Currently Using BIPAP: No Atrial Fibrillation, Hypertension Gastroesophageal Reflux Hearing Impairment: Denies Family Medical History Reviewed and Corrections made Heart Disease, Stroke Review of Systems Constitutional: No chills, No dizziness, No fever, No malaise, No weakness EENTM: No hoarseness, No throat pain Respiratory: No cough, No dyspnea on exertion, No short of breath Cardiovascular: No palpitations Gastrointestinal: No abdominal pain, No constipation, No diarrhea, No nausea, No vomiting Genitourinary: no symptoms reported Musculoskeletal: muscle weakness, other Skin: no symptoms reported Psychiatric/Neurological: Denies Anxiety, Denies Depressed; Weakness All Other Systems Reviewed Negative Unless Noted: Yes Physical Exam Vital Signs Vital Signs - First Documented 11/14/21 11/14/21 11/15/21 13:35 17:02 08:49 Temp 36.5 Pulse 54 Resp 18 B/P (MAP) 164/81 (108) Pulse Ox 96 O2 Delivery Room Air O2 Flow Rate 2.00 FiO2 21 Capillary Refill : Height, Weight, BMI Height: 5'5.00" Weight: 170lbs. oz. 77.577927up; 26.44 BMI Method: General Appearance: No Apparent Distress, WD/WN Eyes: Bilateral Eye Normal Inspection, Bilateral Eye PERRL, Bilateral Eye EOMI HEENT: PERRL/EOMI, Pharynx Normal Neck: Full Range of Motion, Non Tender, Supple Respiratory: Chest Non Tender, Lungs Clear, Normal Breath Sounds, No Accessory Muscle Use, No Respiratory Distress Cardiovascular: Regular Rate, Rhythm, No Murmur, Normal Peripheral Pulses Gastrointestinal: Normal Bowel Sounds, No Organomegaly, No Pulsatile Mass, Non Tender, Soft Rectal: Deferred Back: Normal Inspection, No Vertebral Tenderness Extremity: Normal Capillary Refill, No Pedal Edema, Swelling (LEFT LATERAL HIP) Neurologic/Psychiatric: Alert, Oriented x3, No Motor/Sensory Deficits, Normal Mood/Affect Skin: Normal Color, Warm/Dry Lymphatic: No Adenopathy Assessment/Plan Assessment and Plan LEFT HIP FRACTURE FALL AT HOME ATRIAL FIBRILLATION - STATUS POST CARDIOVERSION HYPERTENSION LEFT HIP FRACTURE DUE TO FALL AT HOME - PLANNING ON REPAIR TODAY ATRIAL FIBRILLATION - STATUS POST CARDIOVERSION SEVERAL YEARS AGO - PT ON MULTAQ AND BETA HELEN WITH RATE CONTROL. HYPERTENSION - CONTINUE WITH METOPROLOL WHEN MED REC COMPLETED. DVT PROPHYLAXIS WITH SCDS FOOT PUMPS AND LOVENOX POST OP GI PROPHYLAXIS WITH PPI WILL NEED SHELTER EVAL/PLACEMENT ON DC VS INPT REHAB EVAL Admission Diagnosis LEFT HIP FRACTURE FALL AT HOME ATRIAL FIBRILLATION - STATUS POST CARDIOVERSION HYPERTENSION Admission Status: Inpatient Order (span 2 midnights) Reason for Inpatient Admission: INPT ADMISSION FOR HIP FRACTURE WILL REQUIRE AT LEAST 2-3 MIDNIGHTS IN HOSPITAL FOR STABILIZATION AND MANAGEMENT DOROTHEA RIVERA MD Nov 15, 2021 08:59
[2021-11-15] MEDS ORDERED: FAMOTIDINE PO (09:39)
[2021-11-15] MEDS ORDERED: FISH1CAP15 PO (09:39)
[2021-11-15] MEDS ORDERED: ESTR10TA9 VG (09:39)
[2021-11-15] MEDS ORDERED: ASCO60LO PO (09:39)
[2021-11-15] MEDS ORDERED: NFBIOT1000 PO (09:39)
[2021-11-15] MEDS ORDERED: ASPI-1238 PO (09:39)
[2021-11-15] MEDS ORDERED: DRON400T6 PO (09:39)
[2021-11-15] MEDS ORDERED: CALC PO (09:39)
[2021-11-15] MEDS ORDERED: MAG PO (09:39)
[2021-11-15] MEDS ORDERED: MULT-1136 PO (09:39)
[2021-11-15] MEDS ORDERED: SLIPPERY ELM PO (09:42)
[2021-11-15] MEDS ORDERED: NALOXONE 0.4 MG/ML 1 ML (NARCAN) VIAL IV PRN (11:30)
[2021-11-15] MEDS ORDERED: fentaNYL INJ 100 MCG/2 ML AMP IVP PRN (11:30)
[2021-11-15] MEDS ORDERED: ONDANSETRON 4 MG/2 ML (SDV) Z0FRAN IVP PRN ×2 (11:30→14:30)
[2021-11-15] MEDS ORDERED: ceFAZolin 2 GM IV Premixed 50 ML ONE (12:05)
--- NOTE | 2021-11-15 12:09 | Progress Note-Pre Operative ---
Pre-Operative Progress Note H&P Reviewed The H&P was reviewed, patient examined and no changes noted. Date Seen by Provider: Nov 15, 2021 Time Seen by Provider: 12:09 Date H&P Reviewed: Nov 15, 2021 Time H&P Reviewed: 12:09 Pre-Operative Diagnosis: displaced left femoral neck fracture LUIS PONCE MD Nov 15, 2021 12:09
--- NOTE | 2021-11-15 12:11 | Progress Note-Post Operative ---
Post-Operative Progess Note Surgeon (s)/Airplane Charter Clerk (s) Surgeon LUIS PONCE MD Airplane Charter Clerk: Shan Hassan Pre-Operative Diagnosis displaced left femoral neck fracture Post-Operative Diagnosis displaced left femoral neck fracture Procedure & Operative Findings Date of Procedure 11/15/21 Procedure Performed/Findings left hip bipolar replacement Anesthesia Type GETA Estimated Blood Loss Estimated blood loss (mL): 200 ml Specimens/Packing Specimens Removed femoral head Packing: none LUIS PONCE MD Nov 15, 2021 12:11
[2021-11-15] MEDS ORDERED: ONDANSETRON 4 MG/2 ML (SDV) Z0FRAN ONE (12:15)
[2021-11-15] MEDS ORDERED: ROCURONIUM 10 MG/ML 5 ML SYRINGE IV ONE (12:15)
[2021-11-15] MEDS ORDERED: proPOfol 200 MG/20 ML (DIPRIVAN) VIAL IV ONE (12:15)
[2021-11-15] MEDS ORDERED: GLYCOPYRROLATE 0.2 MG/ML (ROBINUL) 2 ML VIAL ONE (12:15)
[2021-11-15] MEDS ORDERED: NEOSTIGMINE 3 MG/3 ML VIAL ONE (12:15)
[2021-11-15] MEDS ORDERED: fentaNYL INJ 100 MCG/2 ML AMP ONE (12:15)
[2021-11-15] MEDS ORDERED: LIDOCAINE PF 2% 5 ML (XYLOCAINE) VIAL ONE (12:15)
[2021-11-15] MEDS ORDERED: ROPIVACAINE 5MG/ML 30ML VIAL ONE (13:22)
[2021-11-15] MEDS ORDERED: LACTATED RINGERS 1,000 ML IV PRN (13:30)
[2021-11-15] MEDS ORDERED: SEVOFLURANE (ULTANE) 15 ML INHAL SOLN ONE (14:01)
--- NOTE | 2021-11-15 14:29 | Physical Therapy Progress Note ---
Therapy Progress Note Order for PT eval received, patient is still not back from surgery, will see tomorrow morning. JORGE LUIS BARTLETT PT Nov 15, 2021 14:29
[2021-11-15] MEDS ORDERED: fentaNYL INJ 100 MCG/2 ML AMP IVP ONE (14:30)
--- NOTE | 2021-11-15 14:33 | Progress Note ---
Standard Progress Note Progress Notes/Assess & Plan Date Seen by a Provider: Nov 14, 2021 Time Seen by a Provider: 16:20 Progress/Assessment & Plan consult dictated plan for L eft hip bipolar replacement tomorrow LUIS PONCE MD Nov 15, 2021 14:33
--- NOTE | 2021-11-15 14:34 | Progress Note ---
Standard Progress Note Progress Notes/Assess & Plan Date Seen by a Provider: Nov 15, 2021 Time Seen by a Provider: 14:33 Progress/Assessment & Plan consult dictated plan for L eft hip bipolar replacement tomorrow Final Diagnosis no complaints xray pending LLE--intact DF and PF of toes and ankle. 2 plus DP pulse with brisk cap refill, Intact DF and PF of toes and ankle s/p L hip bipolar mobilize as able LUIS PONCE MD Nov 15, 2021 14:34
--- NOTE | 2021-11-15 14:45 | Diagnostic Imaging Report ---
INDICATION: Postoperative check. EXAMINATION: Left hip from 11/15/2021. FINDINGS: Single view of the left hip. There are skin jona overlying the lateral border of the left hip. There is a total hip arthroplasty which appears well aligned. No fractures or dislocations appreciated. Subcutaneous air consistent with recent surgery. IMPRESSION: 1. Expected postoperative findings. Dictated by: Dictated on workstation # [id number]
[2021-11-15] MEDS ORDERED: ceFAZolin 2 GM IV Premixed 50 ML IV ONE (16:00)
[2021-11-15] MEDS: HYDROcodone/APAP 7.5 MG/325 MG (LORTAB, LORCET PLUS) TABLET PO PRN (17:26)
[2021-11-15] MEDS: ceFAZolin 2 GM IV Premixed 50 ML IV SCH (20:10)
--- NOTE | 2021-11-15 23:12 | OPERATIVE REPORT ---
DATE OF SERVICE: 11/15/2021 PREOPERATIVE DIAGNOSIS: Displaced left femoral neck fracture. POSTOPERATIVE DIAGNOSIS: Displaced left femoral neck fracture. PROCEDURE: Left hip bipolar replacement. SURGEON: Geoff Ponce MD SCREEN ROOM OPERATOR: Shan Hassan, who assisted throughout the procedure and closed the incision. ANESTHESIA: General endotracheal by Dr. Vaughan. ESTIMATED BLOOD LOSS: 200 mL. DRAINS: None. COMPLICATIONS: None. POSTOPERATIVE PLAN: Routine hip protocol with weightbearing as tolerated and hip precautions. The patient was transferred to the recovery room awake and stable condition. MATERIALS: Microport press fit 13.5 mm stem with a 45 liner and 28 head. STATEMENT OF MEDICAL NECESSITY: The patient is an 89-year-old independently living female, who fell yesterday morning, was found to have a left femoral neck fracture, which was displaced. The patient and her daughter were counseled regarding treatment options and elected to proceed with surgical intervention. DESCRIPTION OF PROCEDURE: After risks and benefits of procedure were discussed and questions were answered, an informed consent was signed and placed on chart. The operative site was confirmed in the preoperative holding area initialed by the surgeon. The patient was then transferred to the operating room and after adequate levels of general endotracheal anesthetic were obtained, a timeout was called, confirming the operative site. The patient was carefully placed in the right lateral decubitus position, being careful to place an axillary roll and pad all bony prominences. Left hip and lower extremity were prepped and draped in the usual sterile fashion. A standard anterolateral approach was utilized. Hemostasis was obtained with cautery. The iliotibial band was incised in line with the incision. The underlying soft tissues were carefully dissected. The abductor tendon was released, leaving a 2 cm cuff on the greater trochanter for later reapproximation. A hip capsulotomy was performed. The femoral neck cut was made using a broach as a guide and the femoral head was removed. This was sized to a size 44. The 44 trial was placed in the acetabulum and was found to have excellent coverage. The joint was copiously irrigated, and loose bodies were removed. The femur was then prepared with a box chisel followed by the hand reamers followed by the broaches. A 13.5 broach provided excellent fill proximally. This was then trialled with a 44 liner and 28 head. The hip was reduced and found to be stable in all planes with no impingement noted. The hip was dislocated. The trials were removed. The joint was irrigated with pulse lavage. The 13.5 press-fit stem was placed in 15 degrees of anteversion with good fill obtained. The wound was further irrigated with pulse lavage. The stem neck was irrigated, and the head liner construct was placed, and the hip was reduced after ensuring that there were no loose bodies in the acetabulum. The hip was taken through range of motion. Full motion was obtained. No impingement was noted, and no instability was noted. The joint was further irrigated with pulse lavage. The capsule and abductor were reapproximated using #5 Tevdek in [id number] interrupted fashion. The wound was further irrigated with pulse lavage. The iliotibial band was closed in a running fashion with #1 Vicryl. The wound was further irrigated with pulse lavage using a total of 3 liters throughout the procedure. A 0 Vicryl was used to reapproximate subcutaneous tissue and the superficial subcutaneous layer was closed with 2-0 Vicryl, jona used on the skin. A soft dressing and abduction pillow were applied, and the patient was transferred to the recovery room awake and in stable condition. Job ID: [id number] DocumentID: [id number] Dictated Date: 11/15/2021 13:34:29 Bridal Consultant Date: 11/15/2021 23:12:42 Dictated By: GEOFF PONCE MD
[2021-11-16 00:16] VITALS: BP 131/60
[2021-11-16] MEDS: NS IV 1000 ML 1,000 ML IV SCH ×2 (04:16→09:32)
[2021-11-16] MEDS: ceFAZolin 2 GM IV Premixed 50 ML IV SCH (04:17)
[2021-11-16 04:20] VITALS: BP 129/60
[2021-11-16 05:55] LABS: HEMATOCRIT 31 % (35-52); MEAN CORPUSCULAR HEMOGLOBIN 33 pg (25-34); MEAN CORPUSCULAR HGB CONC 35 g/dL (32-36); MEAN CORPUSCULAR VOLUME 93 fL (80-99); MEAN PLATELET VOLUME 9.2 fL (9.0-12.2); PLATELET COUNT 131 10^3/uL (130-400); WHITE BLOOD COUNT 9.4 10^3/uL (4.3-11.0)
[2021-11-16 06:16] LABS: BILIRUBIN,TOTAL 0.6 MG/DL (0.1-1.0); CREATININE SERUM 0.82 MG/DL (0.60-1.30); POTASSIUM 3.9 MMOL/L (3.6-5.0); TOTAL PROTEIN 5.4 GM/DL (6.4-8.2)
--- NOTE | 2021-11-16 08:01 | Progress Note ---
Standard Progress Note Progress Notes/Assess & Plan Date Seen by a Provider: Nov 16, 2021 Time Seen by a Provider: 08:00 Progress/Assessment & Plan consult dictated plan for L eft hip bipolar replacement tomorrow Final Diagnosis no complaints ready to get OOB Vital Signs Date Time Temp Pulse Resp B/P (MAP) Pulse Ox O2 Delivery O2 Flow Rate FiO2 11/16/21 04:20 36.8 64 20 129/60 (83) 90 Room Air 11/16/21 01:00 79 11/16/21 00:16 36.8 60 20 131/60 (83) 93 Room Air 11/15/21 20:00 36.8 70 20 119/58 (78) 96 Room Air 11/15/21 20:00 96 Room Air 11/15/21 19:44 95 Room Air 11/15/21 19:00 60 11/15/21 15:00 36.4 65 18 135/65 (88) 95 Room Air 11/15/21 14:40 36.7 16 136/57 (83) 94 Room Air 11/15/21 14:38 Room Air 11/15/21 14:30 OxyMask 1 11/15/21 14:30 12 133/68 (89) 96 Room Air 11/15/21 14:20 10 135/62 (86) 100 OxyMask 1 11/15/21 14:15 OxyMask 3 11/15/21 14:10 14 133/57 (82) 100 OxyMask 3 11/15/21 14:00 OxyMask 3 11/15/21 14:00 12 131/61 (84) 100 OxyMask 8 11/15/21 13:50 15 122/61 (81) 99 OxyMask 8 11/15/21 13:44 36.8 20 121/60 (80) 98 OxyMask 8 11/15/21 13:44 OxyMask 8 11/15/21 10:53 97 Nasal Cannula 2.00 11/15/21 08:49 97 Nasal Cannula 2.00 11/15/21 08:38 37.1 69 16 124/58 (80) 87 Room Air 11/15/21 08:13 92 Room Air I & O 11/16/21 07:00 Intake Total 700 ml Output Total 1600 ml Balance -900 ml Laboratory Tests Test 11/15/21 10:45 11/16/21 05:35 Range/Units Influenza Type A (RT-PCR) Not Detected Not Detecte Influenza Type B (RT-PCR) Not Detected Not Detecte SARS-CoV-2 RNA (RT-PCR) Not Detected Not Detecte White Blood Count 9.4 4.3-11.0 10^3/uL Red Blood Count 3.34 L 3.80-5.11 10^6/uL Hemoglobin 11.0 L 11.5-16.0 g/dL Hematocrit 31 L 35-52 % Mean Corpuscular Volume 93 80-99 fL Mean Corpuscular Hemoglobin 33 25-34 pg Mean Corpuscular Hemoglobin Concent 35 32-36 g/dL Red Cell Distribution Width 12.2 10.0-14.5 % Platelet Count 131 130-400 10^3/uL Mean Platelet Volume 9.2 9.0-12.2 fL Sodium Level 132 L 135-145 MMOL/L Potassium Level 3.9 3.6-5.0 MMOL/L Chloride Level 101 98-107 MMOL/L Carbon Dioxide Level 21 21-32 MMOL/L Anion Gap 10 5-14 MMOL/L Blood Urea Nitrogen 12 7-18 MG/DL Creatinine 0.82 0.60-1.30 MG/DL Estimat Glomerular Filtration Rate 66 BUN/Creatinine Ratio 15 Glucose Level 123 H 70-105 MG/DL Calcium Level 8.0 L 8.5-10.1 MG/DL Corrected Calcium 8.8 8.5-10.1 MG/DL Total Bilirubin 0.6 0.1-1.0 MG/DL Aspartate Amino Transf (AST/SGOT) 23 5-34 U/L Alanine Aminotransferase (ALT/SGPT) 8 0-55 U/L Alkaline Phosphatase 46 40-136 U/L Total Protein 5.4 L 6.4-8.2 GM/DL Albumin 3.0 L 3.2-4.5 GM/DL L hip dressing intact. Intact DF and PF of toes and ankle sensation intact throughout radiograph--HW well positioned without fx s/p L hip bipolar PT/OT LUIS DARDEN MD Nov 16, 2021 08:01
[2021-11-16 08:31] VITALS: BP 114/67
[2021-11-16] MEDS: ENOXAPARIN 40 MG/0.4 ML (LOVENOX) SYR SC SCH (08:37)
[2021-11-16] MEDS: HYDROcodone/APAP 7.5 MG/325 MG (LORTAB, LORCET PLUS) TABLET PO PRN ×2 (08:37→12:46)
--- NOTE | 2021-11-16 08:47 | Progress Note ---
Subjective Subjective Date Seen by Provider: Nov 16, 2021 Time Seen by Provider: 08:20 PT REPORTS THAT SHE IS FEELING BETTER, HIP IS STILL SORE, SHE IS WANTING TO GO TO SWING BED SOMEWHERE INSTEAD OF A [facility] IF POSSIBLE. PT DENIES CHEST PAIN, SHORTNESS OF BREATH, DIZZINESS, ABDOMINAL PAIN, NAUSEA. Review of Systems General: No Chills, No Fatigue, No Malaise Pulmonary: No Dyspnea, No Cough Cardiovascular: No: Chest Pain, Palpitations Gastrointestinal: No: Nausea, Abdominal Pain Genitourinary: No Dysuria Musculoskeletal: leg pain (LEFT HIP) Neurological: Weakness; No: Confusion All Other Systems Reviewed All Other Systems Reviewed: Yes Objective Exam Vital Signs Vital Signs Date Time Temp Pulse Resp B/P (MAP) Pulse Ox O2 Delivery O2 Flow Rate FiO2 11/16/21 04:20 36.8 64 20 129/60 (83) 90 Room Air 11/16/21 01:00 79 11/16/21 00:16 36.8 60 20 131/60 (83) 93 Room Air 11/15/21 20:00 36.8 70 20 119/58 (78) 96 Room Air 11/15/21 20:00 96 Room Air 11/15/21 19:44 95 Room Air 11/15/21 19:00 60 11/15/21 15:00 36.4 65 18 135/65 (88) 95 Room Air 11/15/21 14:40 36.7 16 136/57 (83) 94 Room Air 11/15/21 14:38 Room Air 11/15/21 14:30 OxyMask 1 11/15/21 14:30 12 133/68 (89) 96 Room Air 11/15/21 14:20 10 135/62 (86) 100 OxyMask 1 11/15/21 14:15 OxyMask 3 11/15/21 14:10 14 133/57 (82) 100 OxyMask 3 11/15/21 14:00 OxyMask 3 11/15/21 14:00 12 131/61 (84) 100 OxyMask 8 11/15/21 13:50 15 122/61 (81) 99 OxyMask 8 11/15/21 13:44 36.8 20 121/60 (80) 98 OxyMask 8 11/15/21 13:44 OxyMask 8 11/15/21 10:53 97 Nasal Cannula 2.00 11/15/21 08:49 97 Nasal Cannula 2.00 I & O 11/16/21 07:00 Intake Total 700 ml Output Total 1600 ml Balance -900 ml General Appearance: No Apparent Distress, WD/WN Eyes: Bilateral Eye Normal Inspection, Bilateral Eye PERRL, Bilateral Eye EOMI HEENT: PERRL/EOMI, Pharynx Normal Neck: Full Range of Motion, Non Tender, Supple Respiratory: Chest Non Tender, Lungs Clear, Normal Breath Sounds, No Accessory Muscle Use, No Respiratory Distress Cardiovascular: Regular Rate, Rhythm, No Murmur, Normal Peripheral Pulses Gastrointestinal: Normal Bowel Sounds, No Organomegaly, No Pulsatile Mass, Non Tender, Soft Rectal: Deferred Back: Normal Inspection, No Vertebral Tenderness Extremity: Normal Capillary Refill, No Pedal Edema, Swelling (LEFT LATERAL HIP) Neurologic/Psychiatric: Alert, Oriented x3, No Motor/Sensory Deficits, Normal Mood/Affect Skin: Normal Color, Warm/Dry Lymphatic: No Adenopathy Results Lab Laboratory Tests 11/15/21 10:45: Influenza Type A (RT-PCR) Not Detected, Influenza Type B (RT-PCR) Not Detected, SARS-CoV-2 RNA (RT-PCR) Not Detected 11/16/21 05:35: White Blood Count 9.4, Red Blood Count 3.34L, Hemoglobin 11.0L, Hematocrit 31L, Mean Corpuscular Volume 93, Mean Corpuscular Hemoglobin 33, Mean Corpuscular Hemoglobin Concent 35, Red Cell Distribution Width 12.2, Platelet Count 131, Mean Platelet Volume 9.2, Sodium Level 132L, Potassium Level 3.9, Chloride Level 101, Carbon Dioxide Level 21, Anion Gap 10, Blood Urea Nitrogen 12, Creatinine 0.82, Estimat Glomerular Filtration Rate 66, BUN/Creatinine Ratio 15, Glucose Level 123H, Calcium Level 8.0L, Corrected Calcium 8.8, Total Bilirubin 0.6, Aspartate Amino Transf (AST/SGOT) 23, Alanine Aminotransferase (ALT/SGPT) 8, Alkaline Phosphatase 46, Total Protein 5.4L, Albumin 3.0L Assessment/Plan Assessment/Plan Admission Dx LEFT HIP FRACTURE FALL AT HOME ATRIAL FIBRILLATION - STATUS POST CARDIOVERSION HYPERTENSION Assessment and Plan LEFT HIP FRACTURE FALL AT HOME ATRIAL FIBRILLATION - STATUS POST CARDIOVERSION HYPERTENSION LEFT HIP FRACTURE DUE TO FALL AT HOME - POST OP SURGICAL FIXATION ATRIAL FIBRILLATION - STATUS POST CARDIOVERSION SEVERAL YEARS AGO - PT ON MULTAQ AND BETA HELEN WITH RATE CONTROL. HYPERTENSION - CONTINUE WITH METOPROLOL WHEN MED REC COMPLETED. DVT PROPHYLAXIS WITH SCDS FOOT PUMPS AND LOVENOX POST OP GI PROPHYLAXIS WITH PPI WILL NEED [facility] EVAL/PLACEMENT ON DC VS INPT REHAB EVAL Admission Dx LEFT HIP FRACTURE FALL AT HOME ATRIAL FIBRILLATION - STATUS POST CARDIOVERSION HYPERTENSION Clinical Quality Measures Admission Status Admission Dx LEFT HIP FRACTURE FALL AT HOME ATRIAL FIBRILLATION - STATUS POST CARDIOVERSION HYPERTENSION DOROTHEA DAY MD Nov 16, 2021 08:47
--- NOTE | 2021-11-16 09:31 | Anesthesia-General Post-Op ---
General Patient Condition Mental Status/LOC: Same as Preop Cardiovascular: Satisfactory Nausea/Vomiting: Absent Respiratory: Satisfactory Pain: Controlled Complications: Absent Post Op Complications Complications None Follow Up Care/Instructions Patient Instructions None needed. Anesthesia/Patient Condition Patient Condition Patient is doing well, no complaints, stable vital signs, no apparent adverse anesthesia problems. No complications reported per nursing. DANIEL WANG CRNA Nov 16, 2021 09:31
[2021-11-16] MEDS: MAGNESIUM OXIDE (MAG-OX)400 MG TAB PO SCH (09:32)
[2021-11-16] MEDS: DRONEDARONE 400 MG TABLET PO SCH ×2 (09:32→20:47)
[2021-11-16] MEDS: meTOprolol TARTRATE 25 MG (LOPRESSOR) TABLET PO SCH ×2 (09:32→20:47)
--- NOTE | 2021-11-16 10:05 | Physical Therapy Evaluation ---
PT Evaluation-General Medical Diagnosis Admission Date Nov 14, 2021 at 14:49 Medical Diagnosis: left hip fracture Onset Date: Nov 14, 2021 Therapy Diagnosis Therapy Diagnosis: debility/weakness Height/Weight Height (Feet): 5 Height (Inches): 5.00 Weight (Pounds): 170 Precautions Precautions/Isolations: Fall Prevention Weight Bear Status Right Lower Extremity: Right Full Weight Bearing Left Lower Extremity: Left Weight Bearing/Tolerated Referral Physician: Andrew Reason for Referral: Evaluation/Treatment Medical History Current History Fall while standing and putting her shoe on Reviewed History: Yes Social History Home: Apartment Current Living Status: Alone Prior Prior Level of Function SCALE: Activities may be completed with or without assistive devices. 8-Hemrqtbqkr-zkpgbsb completes the activity by him/herself with no assistance from a helper. 5-Set-up or Clean-up Assistance-helper sets up or cleans up; patient completes activity. [place] assists only prior to or following the activity. 4-Supervision or Touching Assistance-helper provides verbal cues and/or touching/steadying and/or contact guard assistance as patient completes activi ty. Assistance may be provided throughout the activity or intermittently. 3-Partial/Moderate Assistance-helper does LESS THAN HALF the effort. [place] lifts, holds or supports trunk or limbs, but provides less than half the effort. 2-Substantial/Maximal Assistance-helper does MORE THAN HALF the effort. [place] lifts or holds trunk or limbs and provides more than half the effort. 6-Uaurwulyt-qikjvn does ALL the effort. Patient does none of the effort to complete the activity. Or, the assistance of 2 or more helpers is required for the patient to complete the activity. If activity was not attempted, code reason: 7-Patient Refused. 9-Not Applicable-not attempted and the patient did not perform the activity before the current illness, exacerbation or injury. 10-Not Attempted due to Environmental Limitations-(lack of equipment, weather restraints, etc.). 88-Not Attempted due to Medical Conditions or Safety Concerns. Bed Mobility: 6 Transfers (B,C,W/C): 6 Gait: 6 Stairs: 6 Indoor Mobility (Ambulation): Independent Stairs: Independent Prior Devices Use: None PT Evaluation-Current Subjective Patient agrees to PT. Pain Numeric Pain Scale: 5-Moderate Pain Location: Left Location Body Site: Hip Pain Description: Acute Objective Patient Orientation: Normal For Age Attachments: Bae Catheter, IV ROM/Strength ROM Lower Extremities left hip precautions/right LE WFL Strength Lower Extremities left LE 3/5 grossly/right LE 3+/5 grossly Integumentary/Posture Bowel Incontinence: No Bladder Incontinence: Bae Cath Posture WFL Neuromuscular (Tone, Coordination, Reflexes) grossly intact Sensory Vision: Wears Glasses Hearing: Functional Transfers Lying to Sitting/Side of Bed(Q: 3 Sit to Stand (QC): 3 Chair/Eli-wo-Jspsb Xfer(QC): 3 Gait Does the Patient Walk?: Yes Mode of Locomotion: Walk Anticipated Mode of Locomotion: Walk Walk 10 feet (QC): 3 Walk 50 ft with 2 Turns(QC): 88 Walk 150 ft (QC): 88 Distance: 12' Gait Assistive Device: FWW Comments/Gait Description slow, step to gait sequence Balance Sitting Static: Normal Sitting Dynamic: Normal Standing Static: Fair Standing Dynamic: Fair Assessment/Needs 89 y.o. female, will benefit from skilled PT to address functional strength and mobility to improve current LOF to safely return to home at maximum LOF. From a PT standpoint, patient would benefit from ARU due to PLOF and current LOF. Rehab Potential: Fair PT Intermediate Goals Intermediate Goals PT Intermediate Goals Time Frame: Dec 16, 2021 Roll Left & Right (QC): 6 Sit to Lying (QC): 6 Lying-Sitting on Side/Bed(QC): 6 Sit to Stand (QC): 6 Chair/Lgz-qg-[place] Xfer(QC): 6 Toilet Transfer (QC): 6 Walk 10 feet (QC): 5 Walk 50ft with 2 Turns (QC): 5 Walk 150 ft (QC): 5 PT Plan Problem List Problem List: Activity Tolerance, Functional Strength, Safety, Balance, Gait, Transfer, Bed Mobility Treatment/Plan Treatment Plan: Continue Plan of Care Treatment Plan: Bed Mobility, Education, Functional Activity Osmar, Functional Strength, Gait, Safety, Therapeutic Exercise, Transfers Treatment Duration: Dec 16, 2021 Frequency: 11 times per week Estimated Hrs Per Day: .5 hour per day Patient and/or Family Agrees t: Yes Discharge Recommendations Therapy Discharge Recommendati: Post Acute PT Time/GCodes Time In: 814 Time Out: 828 Total Billed Treatment Time: 14 Total Billed Treatment 1 visit EVMod 14 min MERVIN SMITH PT Nov 16, 2021 10:05
[2021-11-16 12:01] VITALS: BP 108/57
--- NOTE | 2021-11-16 14:25 | Physical Therapy Daily Note ---
PT Daily Note-Current Subjective Patient is sitting in her chair and agrees to therapy and walking outside of the room. Mental Status Patient Orientation: Person, Place, Time, Situation Attachments: Bae Catheter Transfers SCALE: Activities may be completed with or without assistive devices. 1-Roljztmpjm-sxqrqer completes the activity by him/herself with no assistance from a helper. 5-Set-up or Clean-up Assistance-helper sets up or cleans up; patient completes activity. [place] assists only prior to or following the activity. 4-Supervision or Touching Assistance-helper provides verbal cues and/or touching/steadying and/or contact guard assistance as patient completes activity. Assistance may be provided throughout the activity or intermittently. 3-Partial/Moderate Assistance-helper does LESS THAN HALF the effort. [place] lifts, holds or supports trunk or limbs, but provides less than half the effort. 2-Substantial/Maximal Assistance-helper does MORE THAN HALF the effort. [place] lifts or holds trunk or limbs and provides more than half the effort. 0-Birghogpl-ngnzng does ALL the effort. Patient does none of the effort to complete the activity. Or, the assistance of 2 or more helpers is required for the patient to complete the activity. If activity was not attempted, code reason: 7-Patient Refused. 9-Not Applicable-not attempted and the patient did not perform the activity b efore the current illness, exacerbation or injury. 10-Not Attempted due to Environmental Limitations-(lack of equipment, weather restraints, etc.). 88-Not Attempted due to Medical Conditions or Safety Concerns. Sit to Stand (QC): 3 (min) Chair/Mtu-qz-Pdrno Xfer(QC): 3 (min) Patient required minimal cues for transfers but required min assist when coming to a stand. Weight Bearing Right Lower Extremity: Right Full Weight Bearing Left Lower Extremity: Left Weight Bearing/Tolerated Gait Training Distance: 85' Walk 10 feet (QC): 4 Walk 50 ft with 2 Turns(QC): 4 Gait Assistive Device: FWW Patient ambulated with CGA with FWW. Patient was slow with ambulation and required cues to stay within her walking while ambulating. Exercises Seated Therapy Exercises: Ankle pumps, Long arc quads Seated Reps: 15 Assessment Patient ambulated with CGA and completed LAQ without complaint. Patient reported fatigue after ambulation. Patient continues to have motivation to get better to she can return to home. PT Mcfp Goals Mcfp Goals PT Nutrition Services Aide Goals Time Frame: Dec 16, 2021 Roll Left & Right (QC): 6 Sit to Lying (QC): 6 Lying-Sitting on Side/Bed(QC): 6 Sit to Stand (QC): 6 Chair/Jnr-mb-Qtoke Xfer(QC): 6 Toilet Transfer (QC): 6 Walk 10 feet (QC): 5 Walk 50ft with 2 Turns (QC): 5 Walk 150 ft (QC): 5 PT Plan Treatment/Plan Treatment Plan: Continue Plan of Care Treatment Plan: Bed Mobility, Education, Functional Activity Osmar, Functional Strength, Gait, Safety, Therapeutic Exercise, Transfers Treatment Duration: Dec 16, 2021 Frequency: 11 times per week Estimated Hrs Per Day: .5 hour per day Patient and/or Family Agrees t: Yes Time/GCodes Time In: 1350 Time Out: 1405 Total Billed Treatment Time: 15 Total Billed Treatment 1 Visit Gait 15 min MERVIN SMITH PT Nov 16, 2021 14:25
[2021-11-16 16:00] VITALS: BP 122/58
[2021-11-16 20:00] VITALS: BP 99/55
[2021-11-16] MEDS ORDERED: ASPIRIN E.C. 81 MG (ECOTRIN) TAB PO SCH (21:00)
[2021-11-17 00:30] VITALS: BP 112/64
[2021-11-17 04:11] VITALS: BP 104/65
[2021-11-17] MEDS: HYDROcodone/APAP 7.5 MG/325 MG (LORTAB, LORCET PLUS) TABLET PO PRN ×2 (06:27→14:04)
[2021-11-17 06:49] LABS: HEMOGLOBIN 9.8 g/dL (11.5-16.0)
--- NOTE | 2021-11-17 07:00 | Progress Note ---
Standard Progress Note Progress Notes/Assess & Plan Date Seen by a Provider: Nov 17, 2021 Time Seen by a Provider: 06:59 Progress/Assessment & Plan consult dictated plan for L eft hip bipolar replacement tomorrow Final Diagnosis no complaints Vital Signs Date Time Temp Pulse Resp B/P (MAP) Pulse Ox O2 Delivery O2 Flow Rate FiO2 11/17/21 06:57 36.4 11/17/21 06:27 36.4 11/17/21 04:11 36.4 75 18 104/65 (78) 90 Room Air 11/17/21 01:00 70 11/17/21 00:30 36.8 65 18 112/64 (80) 95 Room Air 11/16/21 20:00 36.4 61 20 99/55 (70) 94 Room Air 11/16/21 20:00 Room Air 1.00 11/16/21 19:00 60 11/16/21 16:00 36.3 57 20 122/58 (79) 95 Room Air 11/16/21 12:08 66 11/16/21 12:01 37.3 66 18 108/57 (74) 93 Room Air 11/16/21 09:35 Room Air 11/16/21 08:31 37.1 78 20 114/67 (83) 93 Room Air 11/16/21 08:00 Room Air I & O 11/17/21 06:59 Intake Total 2580 ml Output Total 600 ml Balance 1980 ml Laboratory Tests Test 11/17/21 05:26 Range/Units Hemoglobin 9.8 L 11.5-16.0 g/dL Hematocrit 28 L 35-52 % L hip incision clean and dry. No calf tenderness. Neg Kyle's s/p L hip bipolar await swing bed transfer PT/OT LUIS Randle MD Nov 17, 2021 07:00
[2021-11-17 08:24] VITALS: BP 94/62
[2021-11-17] MEDS: DRONEDARONE 400 MG TABLET PO SCH (09:25)
[2021-11-17] MEDS: MAGNESIUM OXIDE (MAG-OX)400 MG TAB PO SCH (09:25)
[2021-11-17] MEDS: meTOprolol TARTRATE 25 MG (LOPRESSOR) TABLET PO SCH (09:26)
[2021-11-17] MEDS: ENOXAPARIN 40 MG/0.4 ML (LOVENOX) SYR SC SCH (09:26)
--- NOTE | 2021-11-17 09:53 | Physical Therapy Daily Note ---
PT Daily Note-Current Subjective Patient is sitting up and bed and reports that her hip has not been causing her as much pain. Patient agrees to participate in therapy. Mental Status Patient Orientation: Person, Place, Time, Situation Attachments: Bae Catheter Transfers SCALE: Activities may be completed with or without assistive devices. 0-Mipqznovqo-acmfoyj completes the activity by him/herself with no assistance from a helper. 5-Set-up or Clean-up Assistance-helper sets up or cleans up; patient completes activity. [place] assists only prior to or following the activity. 4-Supervision or Touching Assistance-helper provides verbal cues and/or touching/steadying and/or contact guard assistance as patient completes activity. Assistance may be provided throughout the activity or intermittently. 3-Partial/Moderate Assistance-helper does LESS THAN HALF the effort. [place] lifts, holds or supports trunk or limbs, but provides less than half the effort. 2-Substantial/Maximal Assistance-helper does MORE THAN HALF the effort. [place] lifts or holds trunk or limbs and provides more than half the effort. 0-Kxpwamfnv-bvthaj does ALL the effort. Patient does none of the effort to complete the activity. Or, the assistance of 2 or more helpers is required for the patient to complete the activity. If activity was not attempted, code reason: 7-Patient Refused. 9-Not Applicable-not attempted and the patient did not perform the activity before the current illness, exacerbation or injury. 10-Not Attempted due to Environmental Limitations-(lack of equipment, weather restraints, etc.). 88-Not Attempted due to Medical Conditions or Safety Concerns. Lying to Sitting/Side of Bed(Q: 3 (mod) Sit to Stand (QC): 3 (min) Chair/Hke-oi-Ipxks Xfer(QC): 3 Weight Bearing Right Lower Extremity: Right Full Weight Bearing Left Lower Extremity: Left Weight Bearing/Tolerated Gait Training Does the Patient Walk?: Yes Distance: 150' Walk 10 feet (QC): 4 Walk 50 ft with 2 Turns(QC): 4 Walk 150 ft (QC): 4 Gait Assistive Device: FWW Patient ambulated with FWW and CGA for 150'. Patient reported slight fatigue with ambulation. Patient required cues to stay within her walker while ambulating. Exercises Supine Ex: Ankle pumps Assessment Patient requires assistance to move her L LE out of bed and does not have the strength yet to slide it across the bed. Patient requires min assist for sit to stand transfer but is able to ambulate with CGA. Patient ambulation distance is improving. PT Alteration Specialist Goals Alteration Specialist Goals PT Longterm Goals Time Frame: Dec 16, 2021 Roll Left & Right (QC): 6 Sit to Lying (QC): 6 Lying-Sitting on Side/Bed(QC): 6 Sit to Stand (QC): 6 Chair/Kyz-az-Zqgcz Xfer(QC): 6 Toilet Transfer (QC): 6 Walk 10 feet (QC): 5 Walk 50ft with 2 Turns (QC): 5 Walk 150 ft (QC): 5 PT Plan Treatment/Plan Treatment Plan: Continue Plan of Care Treatment Plan: Bed Mobility, Education, Functional Activity Osmar, Functional Strength, Gait, Safety, Therapeutic Exercise, Transfers Treatment Duration: Dec 16, 2021 Frequency: 11 times per week Estimated Hrs Per Day: .5 hour per day Patient and/or Family Agrees t: Yes Time/GCodes Time In: 835 Time Out: 950 Total Billed Treatment Time: 15 Total Billed Treatment 1 Visit Gait 15 min MERVIN SMITH PT Nov 17, 2021 09:53
--- NOTE | 2021-11-17 11:19 | Discharge Summary ---
Diagnosis/Chief Complaint Date of Admission Nov 14, 2021 at 14:49 Date of Discharge Discharge Date: Nov 17, 2021 Discharge Time: 14:00 Admission Diagnosis Admission Diagnosis LEFT HIP FRACTURE FALL AT HOME ATRIAL FIBRILLATION - STATUS POST CARDIOVERSION HYPERTENSION Discharge Diagnosis LEFT HIP FRACTURE FALL AT HOME ATRIAL FIBRILLATION - STATUS POST CARDIOVERSION HYPERTENSION Reason Hospital Visit PT IS AN 89 Y/O FEMALE WHO WAS ADMITTED TO THIS PROVIDER AFTER SUSTAINING A FALL AT HOME. SHE REPORTS THAT SHE WAS ATTEMPTING TO PUT ON A SHOE, LOST HER BALANCE AND FELL OVER ONTO HER LEFT HIP. SHE HAD IMMEDIATE PAIN, AND WAS TRANSPORTED TO THE HOSPITAL WHERE SHE WAS FOUND TO HAVE A HIP FRACTURE. SHE WAS ADMITTED TO THE HOSPITAL FOR SURGICAL INTERVENTION/STABILIZATION OF FRACTURE. Discharge Summary Procedures: POST OP LEFT HIP REPAIR Consultations DR. PONCE Discharge Physical Examination Allergies: Coded Allergies: esomeprazole (Unverified Allergy, Mild, HIVES, 04/27/14) paroxetine (Unverified Allergy, Mild, HIVES, 04/27/14) nitrofurantoin (Verified Allergy, Unknown, 11/15/21) sulfamethoxazole (Verified Allergy, Unknown, HIVES, 11/14/21) trimethoprim (Verified Allergy, Unknown, HIVES, 11/14/21) Vitals & I&Os Vital Signs Date Time Temp Pulse Resp B/P (MAP) Pulse Ox O2 Delivery O2 Flow Rate FiO2 11/17/21 09:49 94 Room Air 11/17/21 08:24 37.1 67 20 94/62 (73) 11/16/21 20:00 1.00 11/14/21 17:02 21 General Appearance: Alert, Oriented X3, Cooperative, No Acute Distress HEENT: Atraumatic, PERRLA, Mucous Memb Moist/[place] Respiratory: Clear to Auscultation, Normal Air Movement Cardiovascular: Regular Rate Abdominal: Normal Bowel Sounds, Soft Extremities: No Clubbing Skin: No Rashes Neuro: Normal Gait, Normal Speech, Cranial Nerves 3-12 NL Psych/Mental Status: Mental Status NL, Mood NL Hospital Course Was the Problem List Reviewed?: Yes LEFT HIP FRACTURE FALL AT HOME ATRIAL FIBRILLATION - STATUS POST CARDIOVERSION HYPERTENSION LEFT HIP FRACTURE DUE TO FALL AT HOME - POST OP SURGICAL FIXATION DAY #2 ATRIAL FIBRILLATION - STATUS POST CARDIOVERSION SEVERAL YEARS AGO - PT ON MULTAQ AND BETA HELEN WITH RATE CONTROL. HYPERTENSION - CONTINUE WITH METOPROLOL WHEN MED REC COMPLETED. DVT PROPHYLAXIS WITH SCDS FOOT PUMPS AND LOVENOX POST OP GI PROPHYLAXIS WITH PPI DC FOR THERAPY Pending Labs Laboratory Tests 11/17/21 05:26: Hemoglobin 9.8, Hematocrit 28 Discharge Condition at discharge STABLE/IMPROVED Instructions to patient/family Please see electronic discharge instructions given to patient. Discharge Medications Reviewed and agree with Discharge Medication list on patient's Discharge Inst ruction sheet DOROTHEA DAY MD Nov 17, 2021 11:19
[2021-11-17] MEDS ORDERED: HYDR-34 PO (11:34)
[2021-11-17] MEDS ORDERED: ALPR.25T PO (11:34)
[2021-11-17 12:15] VITALS: BP 103/58
--- NOTE | 2021-11-17 14:22 | Physical Therapy Daily Note ---
PT Daily Note-Current Subjective Patient is in bed and eventually agrees to physical therapy this afternoon. Patient reports that she was in the chair for most of the morning and is sore and tired from sitting in the chair. Mental Status Patient Orientation: Person, Place, Time, Situation Transfers SCALE: Activities may be completed with or without assistive devices. 7-Vneraefpvh-syujwfh completes the activity by him/herself with no assistance from a helper. 5-Set-up or Clean-up Assistance-helper sets up or cleans up; patient completes activity. [place] assists only prior to or following the activity. 4-Supervision or Touching Assistance-helper provides verbal cues and/or touching/steadying and/or contact guard assistance as patient completes activity. Assistance may be provided throughout the activity or intermittently. 3-Partial/Moderate Assistance-helper does LESS THAN HALF the effort. [place] li fts, holds or supports trunk or limbs, but provides less than half the effort. 2-Substantial/Maximal Assistance-helper does MORE THAN HALF the effort. [place] lifts or holds trunk or limbs and provides more than half the effort. 7-Pozjxpkvu-bvuitc does ALL the effort. Patient does none of the effort to complete the activity. Or, the assistance of 2 or more helpers is required for the patient to complete the activity. If activity was not attempted, code reason: 7-Patient Refused. 9-Not Applicable-not attempted and the patient did not perform the activity before the current illness, exacerbation or injury. 10-Not Attempted due to Environmental Limitations-(lack of equipment, weather restraints, etc.). 88-Not Attempted due to Medical Conditions or Safety Concerns. Sit to Lying (QC): 3 (mod) Lying to Sitting/Side of Bed(Q: 3 (min) Sit to Stand (QC): 3 (min) Weight Bearing Right Lower Extremity: Right Full Weight Bearing Left Lower Extremity: Left Weight Bearing/Tolerated Gait Training Distance: 150' Walk 10 feet (QC): 4 Walk 50 ft with 2 Turns(QC): 4 Gait Assistive Device: FWW Exercises Seated Therapy Exercises: Ankle pumps, Long arc quads Assessment Patient completed ambulation and seated exercises but was fatigued after therapy session. Patient ambulated for 150' with FWW and CGA. Patient continues to improve with ambulation and exercises. Patient reports that she is trying to figure out how to get to a rehab center before coming home. PT Custodial Goals Hog Stomach Preparer Goals PT Hog Stomach Preparer Goals Time Frame: Dec 16, 2021 Roll Left & Right (QC): 6 Sit to Lying (QC): 6 Lying-Sitting on Side/Bed(QC): 6 Sit to Stand (QC): 6 Chair/Vrk-id-Umqmn Xfer(QC): 6 Toilet Transfer (QC): 6 Walk 10 feet (QC): 5 Walk 50ft with 2 Turns (QC): 5 Walk 150 ft (QC): 5 PT Plan Treatment/Plan Treatment Plan: Continue Plan of Care Treatment Plan: Bed Mobility, Education, Functional Activity Osmar, Functional Strength, Gait, Safety, Therapeutic Exercise, Transfers Treatment Duration: Dec 16, 2021 Frequency: 11 times per week Estimated Hrs Per Day: .5 hour per day Patient and/or Family Agrees t: Yes Time/GCodes Time In: 1336 Time Out: 1356 Total Billed Treatment Time: 20 Total Billed Treatment 1 Visit Gait 20 min MERVIN SMITH PT Nov 17, 2021 14:22
[2021-11-17 16:04] VITALS: BP 113/54
[2021-11-17 17:41] VITALS: BP 113/54
== END 2021-11-17 17:46 | disposition swing bed (61) | DRG 522 ==
LOC: ER 13:34 → 4TH 14:49
PROVIDERS: ADMIT Family Medicine; ATTEND Family Medicine
PROC: 0SRS0JA Replacement of Left Hip Joint, Femoral Surface with Synthetic Substitute, Uncemented, Open Approach (ICD-10-PCS; principal; 2021-11-15 12:19)
DX: S72.002A Fracture of unspecified part of neck of left femur, initial encounter for closed fracture (principal); K21.9 Gastro-esophageal reflux disease without esophagitis; I48.91 Unspecified atrial fibrillation; I10 Essential (primary) hypertension; Z79.82 Long term (current) use of aspirin; W18.30XA Fall on same level, unspecified, initial encounter; Y92.009 Unspecified place in unspecified non-institutional (private) residence as the place of occurrence of the external cause; Z20.822 Contact with and (suspected) exposure to COVID-19
CPT/HCPCS: 36415; 51702; 71045; 73501; 80048; 80053; 85014; 85018; 85025; 85027; 87081; 87636; 93005; 94664; 94760

== ENCOUNTER 2022-02-07 09:30 | Day surgery (SDC) | payer MEDICARE, MEDICAID ==
[~2022-02-07] VITALS: Ht 165.1 cm; Wt 73.2 kg
--- NOTE | 2022-02-07 08:36 | Diagnostic Imaging Report ---
INDICATION: Atrial fibrillation AP view of the chest is obtained with comparison made to study of 11/14/2021. FINDINGS: Heart size and pulmonary vascularity are within normal limits, and the lungs are clear, bilaterally. Loop recorder is seen in the chest wall. IMPRESSION: Unremarkable chest. Dictated by: Dictated on workstation # [id number]
[2022-02-07 08:38] LABS: HEMATOCRIT 40 % (35-52); HEMOGLOBIN 13.3 g/dL (11.5-16.0); MEAN CORPUSCULAR HEMOGLOBIN 32 pg (25-34); MEAN CORPUSCULAR HGB CONC 33 g/dL (32-36); MEAN CORPUSCULAR VOLUME 95 fL (80-99); MEAN PLATELET VOLUME 8.9 fL (9.0-12.2); PLATELET COUNT 171 10^3/uL (130-400); WHITE BLOOD COUNT 4.9 10^3/uL (4.3-11.0)
[2022-02-07 08:40] LABS: BILIRUBIN,URINE NEGATIVE (NEGATIVE); CLARITY,URINE CLEAR; COLOR,URINE YELLOW; GLUCOSE, URINE (UA) NEGATIVE (NEGATIVE); KETONES,URINE NEGATIVE (NEGATIVE); LEUKOCYTE ESTERASE ,URINE 3+ (NEGATIVE); NITRITE,URINE NEGATIVE (NEGATIVE); PROTEIN,URINE NEGATIVE (NEGATIVE)
[2022-02-07 08:56] LABS: INR 1.3 (0.8-1.4)
[2022-02-07 09:05] LABS: ALBUMIN 4.3 GM/DL (3.2-4.5); BILIRUBIN,TOTAL 0.7 MG/DL (0.1-1.0); CALCIUM 9.6 MG/DL (8.5-10.1); CREATININE SERUM 1.05 MG/DL (0.60-1.30); POTASSIUM 3.7 MMOL/L (3.6-5.0); TOTAL PROTEIN 7.5 GM/DL (6.4-8.2)
[2022-02-07 09:16] LABS: BACTERIA,URINE MODERATE /HPF; SQUAMOUS EPITHELIAL CELL,UR 0-2 /HPF; WBC,URINE 25-50 /HPF
[~2022-02-07 09:30] MED LIST changes: +ALPR0.254 PO; +ASCO60LO PO; +ASPI-1238 PO; +CALC PO; +CHOL500044 PO; +CYAN500T8 PO; +DRON400T6 PO; +ESTR10TA9 VG; +FAMOTIDINE PO; +FISH1CAP15 PO; +HEParin (CATH LAB) 0 ML IV ONE; +HYDR-34 PO; +LIDOCAINE 1% INJ 50 ML (XYLOCAINE) VIAL ONE; +LIDOCAINE 2% VISCOUS 15 ML UDC ONE; +MAG PO; +MULT-1136 PO; +NFBIOT1000 PO; +NS IV 1000 ML 1,000 ML IV SCH; +NS IV 1000 ML 1,000 ML ONE; +POTA99TA26 PO; +PROP1.5D OU; +SLIPPERY ELM PO; +proPOfol 200 MG/20 ML (DIPRIVAN) VIAL IV ONE
--- NOTE | 2022-02-07 09:52 | Conscious Sedation/ASA ---
Conscious Sedation Pre-Proced Time 09:51 ASA Score 3 For ASA 3 and 4: Consider anesthesia and medical clearance. Also, for patients with a history of failed moderate sedation consider anesthesia. Airway Lungs Heart ASA score ASA 1: a normal healthy patient ASA 2: a patient with a mild systemic disease (mid diabetes, controlled hypertension, obesity ASA 3: a patient with a severe systemic disease that limits activity (angina, COPD, prior Myocardial infarction) ASA 4: a patient with an incapacitating disease that is a constant threat to life (CHF, renal failure) ASA 5: a moribund patient not expected to survive 24 hrs. (ruptured aneurysm) ASA 6: a declared brain- patient whose organs are being harvested. For emergent operations, add the letter E after the classification Mallampati Classification Grade 3 Sedation Plan Analgesia, Amnesia, Plan communicated to team members, Discussed options with patient/fam, Discussed risks with patient/fam The patient is an appropriate candidate to undergo the planned procedure, sedation, and anesthesia. The patient immediately re-assessed prior to indication. HERBER BADILLO MD Feb 07, 2022 09:52
[2022-02-07 10:01] VITALS: BP 111/78
--- NOTE | 2022-02-07 10:12 | Discharge Inst-Post CATH ---
Discharge Inst-CATH/EP Problems Reviewed?: Yes Post Cardiac Cath/EP D/C Inst Follow Up/Plan Appointment with Dr. Walton in 2 to 4 weeks <b>CARDIAC CATH/EP PROCEDURE DISCHARGE INSTRUCTIONS</b> ACTIVITY * Go Home directly and rest. * Limit activity of the leg (or wrist if it was used) for 7 days including aerobics, swimming, jogging, bicycling, etc. * Restrict stair-climbing for 7 days if possible, if not, climb up with your non-cath leg, then bring together on the same step. * Avoid lifting, pushing, pulling or excessive movement of the affected extremity for 7 days. * Customary sexual activity may be resumed after 2 days-use caution not to use a position that strains or causes pain to the affected extremity. * No driving for 24 hours. * NO SMOKING. * Avoid straining for bowel movements for 7 days. * Gentle walking on level ground is allowed. * Returning to work will depend on the type of procedure and the results. Your doctor will discuss this with you. CALL YOUR DOCTOR FOR ANY OF THE FOLLOWING: *If bleeding from the puncture site occurs- Apply gentle pressure to site with clean cloth and call your doctor or EMS. * If a knot or lump forms under the skin, increases in size, or causes pain. * If bruising appears to be worsening or moving further down your leg instead of disappearing. * Temperature above 101 F. CARE OF YOUR GROIN INCISION; * Bruising or purple discoloration of the skin near the puncture site is common. * You may shower only, no bathtub bathing for 5 days. Be careful to avoid slipping as your leg may feel stiff. * If a closure device was used on your femoral artery, please see the attached guide regarding care of the device and your leg. * Leave dressing on FOR 24 hours. CARE OF YOUR WRIST INCISION; * Bruising or purple discoloration of the skin near the puncture site is common. * You may shower. * DO NOT submerge wrist. * Leave dressing on FOR 24 hours. HERBER WALTON MD Feb 07, 2022 10:12
--- NOTE | 2022-02-07 10:13 | Cardioversion ---
Cardioversion PROCEDURE PHYSICIAN: Herber Walton DATE OF PROCEDURE: 02/07/22 DIRECT EXTERNAL ELECTRICAL CARDIOVERSION: Indications: Atrial Fibrillation with rapid ventricular rate Preoperative diagnoses: Atrial Fibrillation with rapid ventricular rate Postoperative diagnosis: Sinus rhythm, Successful Electrical Cardioversion Anesthesia: By Anesthesia services Complications: None Procedure Details: The patient was brought the ballistics laboratory gunsmith after informed consent was taken, all the risks and complications were explained including the risk of stroke. Electrical cardioversion was carried out with anesthesia support with propofol. 120 joules of synchronized shock was delivered through external patches which promptly restored sinus rhythm. The patient tolerated the procedure well. Conclusions: Successful electrical cardioversion in terminating atrial fibrillation Final Diagnosis: Paroxysmal atrial fibrillation Palpitation Hypertension Hyperlipidemia HERBER WALTON MD Feb 07, 2022 10:13
[2022-02-07] MEDS ORDERED: AMIODARONE FOR BOLUS 150 MG in NS (IVPB) 100 ML IV ONE (10:15)
[2022-02-07 10:19] VITALS: BP 138/62
[2022-02-07 10:35] VITALS: BP 141/67
--- NOTE | 2022-02-07 11:23 | Anesthesia-General Post-Op ---
MAC Patient Condition Mental Status/LOC: Same as Preop Cardiovascular: Satisfactory Nausea/Vomiting: Absent Respiratory: Satisfactory Pain: Controlled Complications: Absent Post Op Complications Complications None Follow Up Care/Instructions Patient Instructions None needed. Anesthesiology Discharge Order Discharge Order Patient is doing well, no complaints, stable vital signs, no apparent adverse anesthesia problems. No complications reported per nursing. DANIEL WANG CRNA Feb 07, 2022 11:23
== END 2022-02-07 11:08 | disposition home or self-care (01) ==
LOC: CATH 09:30
PROVIDERS: ATTEND Internal Medicine Cardiovascular Disease
DX: I48.0 Paroxysmal atrial fibrillation (principal); I10 Essential (primary) hypertension; E78.5 Hyperlipidemia, unspecified; I25.10 Atherosclerotic heart disease of native coronary artery without angina pectoris; I27.20 Pulmonary hypertension, unspecified; I08.3 Combined rheumatic disorders of mitral, aortic and tricuspid valves; I87.2 Venous insufficiency (chronic) (peripheral); I65.23 Occlusion and stenosis of bilateral carotid arteries; K21.9 Gastro-esophageal reflux disease without esophagitis; G47.33 Obstructive sleep apnea (adult) (pediatric); J45.909 Unspecified asthma, uncomplicated; E78.2 Mixed hyperlipidemia; F41.9 Anxiety disorder, unspecified; Z87.891 Personal history of nicotine dependence; Z79.01 Long term (current) use of anticoagulants; Z79.899 Other long term (current) drug therapy; Z99.89 Dependence on other enabling machines and devices
CPT/HCPCS: 36415; 71045; 80053; 80061; 81000; 85027; 85610; 85730; 87077; 87081; 87088; 87186; 92960; 93005

== ENCOUNTER → 2022-02-21 | Outpatient (CLI) | payer MEDICARE, MEDICAID ==
[~2022-02-21] MED LIST changes: -HEParin (CATH LAB) 0 ML IV ONE; -LIDOCAINE 1% INJ 50 ML (XYLOCAINE) VIAL ONE; -LIDOCAINE 2% VISCOUS 15 ML UDC ONE; -NS IV 1000 ML 1,000 ML IV SCH; -NS IV 1000 ML 1,000 ML ONE; -proPOfol 200 MG/20 ML (DIPRIVAN) VIAL IV ONE
== END ==
LOC: LABNPT 11:00
PROVIDERS: ATTEND Obstetrics & Gynecology
DX: N39.0 Urinary tract infection, site not specified (principal)
CPT/HCPCS: 87088

== ENCOUNTER 2022-06-19 08:50 | Emergency (ER) | payer MEDICARE, MEDICAID ==
[~2022-06-19] VITALS: Ht 165.1 cm; Wt 69.4 kg
[2022-06-19 08:58] VITALS: BP 160/73
--- NOTE | 2022-06-19 09:26 | ED GI ---
General Chief Complaint: Abdominal/GI Problems Stated Complaint: DIARRHEA Nursing Triage Note: pt states that she has been having diarrhea that has been worsening over the past 3 days. She had one episode of n/v that was clear liquid. Was advised by her PCP office to take immodium but was worried because the label says not to take if you have a heart condition and she has a hx of A-fib. Pt states that she has been getting weaker over the past three days. Source of Information: Patient, Caregiver Exam Limitations: No Limitations History of Present Illness Date Seen by Provider: Jun 19, 2022 Time Seen by Provider: 09:10 Initial Comments Patient is an 89-year-old female who presents to the emergency department with a caregiver with a chief complaint of diarrhea since Saturday. Patient states that she has had 5-6 episodes at least a night since Saturday. She has not taken any Imodium because the packaging states to use caution with history of arrhythmia. She does have a history of A. fib status postcardiac ablation/electrical cardioversion and has been normal sinus. She denies black or bloody stools. She states it is watery and yellow. No recent antibiotic use. No recent travel. She has had 1 episode of nausea and vomiting. She has had no appetite but has been drinking fluids and she states they run right t hrough her. She complains of generalized weakness. She has a history of urinary tract infection and is concerned she might have a mild UTI. No muscle cramping or specific extremity weakness. No fevers or chills. No COVID symptoms. All other review of systems reviewed and negative except as stated Timing/Duration: 2-3 Days Severity/Quality: Moderate Associated Symptoms: Weakness Allergies and Home Medications Allergies Coded Allergies: esomeprazole (Unverified Allergy, Mild, HIVES, 04/27/14) paroxetine (Unverified Allergy, Mild, HIVES, 04/27/14) nitrofurantoin (Verified Allergy, Unknown, 11/15/21) sulfamethoxazole (Verified Allergy, Unknown, HIVES, 11/14/21) trimethoprim (Verified Allergy, Unknown, HIVES, 11/14/21) Patient Home Medication List Home Medication List Reviewed: Yes ALPRAZolam (ALPRAZolam) 0.25 Mg Tablet, 0.25 MG PO HS PRN for SLEEP, (Reported) Entered as Reported by: JUAN CARLOS CORRIGAN on 02/07/22908 Acetaminophen (Tylenol) 325 Mg Tablet, 650 MG PO Q6H PRN for PAIN-MILD (1-4), (Reported) Entered as Reported by: JUAN CARLOS CORRIGAN on 02/07/22908 Apixaban (Eliquis) 5 Mg Tablet, 5 MG PO BID, (Reported) Entered as Reported by: JUAN CARLOS CORRIGAN on 02/07/22908 Aspirin (Aspirin EC) 81 Mg Tablet.dr, 81 MG PO DAILY, (Reported) Entered as Reported by: RAVI KEARNS on 11/15/21938 Biotin (Biotin) 1,000 Mcg Tablet, 1,000 MCG PO DAILY, (Reported) Entered as Reported by: RAVI KEARNS on 11/15/21938 Cholecalciferol (Vitamin D3) (Vitamin D3) 125 Mcg Tablet, 125 MCG PO DAILY, (Reported) Entered as Reported by: JUAN CARLOS CORRIGAN on 02/07/22908 Cyanocobalamin (Vitamin B-12) (Vitamin B-12) 500 Mcg Tablet, 500 MCG PO DAILY, (Reported) Entered as Reported by: JUAN CARLOS CORRIGAN on 02/07/22908 Dronedarone HCl (Multaq) 400 Mg Tablet, 400 MG PO BID, (Reported) Entered as Reported by: RAVI KEARNS on 11/15/21938 Estradiol (Estradiol) 10 Mcg Tablet, 10 MCG VG WED, (Reported) Entered as Reported by: RAVI KEARNS on 11/15/21938 Fish Oil/Dha/Epa (Fish Oil 1,200 mg Fish Oil) 1 Each Capsule, 1 EACH PO DAILY, ( Reported) Entered as Reported by: RAVI KEARNS on 11/15/21938 Magnesium Oxide (Magnesium) 250 Mg Tablet, 250 MG PO DAILY, (Reported) Entered as Reported by: LUIS F ROBERTS on 09/14/15 1038 Metoprolol Tartrate (Metoprolol Tartrate) 25 Mg Tablet, 12.5 MG PO BID, (Reported) Entered as Reported by: LUIS F ROBERTS on 09/14/15 1038 Multivitamin (Multivitamin) 1 Each Tablet, 1 EACH PO DAILY, (Reported) Entered as Reported by: RAVI KEARNS on 11/15/21938 Potassium Gluconate (Potassium) 99 Mg Tablet, 99 MG PO DAILY, (Reported) Entered as Reported by: JUAN CARLOS CORRIGAN on 02/07/22908 Propylene Glycol (Systane Complete) 1.5 Ml Drops, 1 DROP OU DAILY PRN for DRY EYES, (Reported) Entered as Reported by: JUAN CARLOS CORRIGAN on 02/07/22908 [[place]] CAP, 1 EA PO DAILY, (Reported) Entered as Reported by: RAVI KEARNS on 11/15/21 09 Review of Systems Review of Systems Constitutional: see HPI, weakness EENTM: No Symptoms Reported Respiratory: No Symptoms Reported Cardiovascular: No Symptoms Reported Gastrointestinal: Diarrhea, Nausea, Vomiting Genitourinary: No Symptoms Reported Musculoskeletal: no symptoms reported Skin: no symptoms reported Psychiatric/Neurological: Weakness All Other Systems Reviewed Negative Unless Noted: Yes Past [id number] Hx Patient Social History Tobacco Use?: No Smoking Status: Former Smoker Use of E-Cig and/or Vaping dev: No Substance use?: No Alcohol Use?: No Pt feels they are or have been: No Immunizations Up To Date First/Initial COVID19 Vaccinat: 2020 Second COVID19 Vaccination [place]: 2020 Third COVID19 Vaccination Date: SEP 2021 Past Medical History Surgery/Hospitalization HX: HTN, AFIB Breast, Orthopedic Respiratory: No Sleep Apnea Currently Using CPAP: No Currently Using BIPAP: No Cardiac: Yes Atrial Fibrillation, Hypertension Gastrointestinal: No Gastroesophageal Reflux Hearing Impairment: Denies Cancer: No Family Medical History Heart Disease, Stroke Physical Exam Vital Signs Vital Signs - First Documented 06/19/22 08:58 Temp 36.6 Pulse 53 Resp 16 B/P (MAP) 160/73 (102) Pulse Ox 95 O2 Delivery Room Air Capillary Refill : Less Than 3 Seconds Height/Weight/BMI Height: 5'5.00" Weight: 170lbs. oz. [id number]; 25.00 BMI Method: General Appearance: no apparent distress, thin HEENT: PERRL/EOMI Respiratory: lungs clear, normal breath sounds, no respiratory distress, no accessory muscle use Cardiovascular: regular rate, rhythm, no murmur Gastrointestinal: non tender, soft, abnormal bowel sounds (hyperactive); No tenderness Extremities: normal range of motion, non-tender, normal inspection Neurologic/Psychiatric: no motor/sensory deficits, alert, normal mood/affect, oriented x 3 Skin: normal color, warm/dry, other (good skin turgor; plump veins) Progress/Results/Core Measures Results/Orders Lab Results Laboratory Tests Test 06/19/22 09:22 06/19/22 09:54 Range/Units Sodium Level 125 *L 135-145 MMOL/L Potassium Level 3.3 L 3.6-5.0 MMOL/L Chloride Level 94 L 98-107 MMOL/L Carbon Dioxide Level 23 21-32 MMOL/L Anion Gap 8 5-14 MMOL/L Blood Urea Nitrogen 9 7-18 MG/DL Creatinine 0.86 0.60-1.30 MG/DL Estimat Glomerular Filtration Rate 65 BUN/Creatinine Ratio 10 Glucose Level 96 70-105 MG/DL Calcium Level 8.8 8.5-10.1 MG/DL Urine Color YELLOW Urine Clarity CLEAR Urine pH 7.0 5-9 Urine Specific [place] <=1.005 1.016-1.022 Urine Protein NEGATIVE NEGATIVE Urine Glucose (UA) NEGATIVE NEGATIVE Urine Ketones NEGATIVE NEGATIVE Urine Nitrite NEGATIVE NEGATIVE Urine Bilirubin NEGATIVE NEGATIVE Urine Urobilinogen 0.2 < = 1.0 MG/DL Urine Leukocyte Esterase 3+ H NEGATIVE Urine RBC (Auto) 1+ H NEGATIVE Urine RBC RARE /HPF Urine WBC 25-50 H /HPF Urine Squamous Epithelial Cells >50 H /HPF Urine Crystals NONE /LPF Urine Bacteria MODERATE H /HPF Urine Casts NONE /LPF Urine Mucus NEGATIVE /LPF Urine Culture Indicated YES Stool Occult Blood Immunoassay NEGATIVE NEGATIVE Micro Results Microbiology 06/19/22 C. difficile GDH Antigen & Toxins - Final, Resulted 06/19/22 Stool Culture, Resulted Pending My Orders Orders - JESSICA GRANGER MD Ed Iv/Invasive Line Start (06/19/22 09:22) Basic Metabolic Panel (06/19/22 09:22) Ua Culture If Indicated (06/19/22 09:22) Stool Culture (06/19/22 09:58) Occult Blood Stool (06/19/22 09:58) Parasite Scrn Stool Giard Cryp (06/19/22 09:58) C Difficile Ag + Toxin A/B. (06/19/22 09:58) Isolation Central Supply Req (06/19/22 09:58) Ns Iv 500 Ml (Sodium Chloride 0.9%) (06/19/22 10:15) Urine Culture (06/19/22 09:54) Vancomycin Oral Capsule (Vancomycin Oral (06/19/22 11:00) Vital Signs/I&O 06/19/22 06/19/22 08:58 10:15 Temp 36.6 Pulse 53 51 Resp 16 B/P (MAP) 160/73 (102) 125/60 Pulse Ox 95 98 O2 Delivery Room Air Room Air Blood Pressure Mean: 102 Progress Progress Note : Time: 11:19 Progress Note I spoke with Dr. Rivera regarding Ms. Crocker's findings of C. difficile antigen positive with toxin negativity. She recommends going ahead and starting her on the oral vancomycin. We will give her a dose here in the emergency room. The lab notified us that it is a send out secondary to having positive antigen status and negative toxin status. She is a little bit hyponatremic. I told her that she could add a little extra salt to her diet over the course of the next week. She feels spry enough to try discharge to home. She is feeling pretty good at the moment. Her vital signs are stable. The rest of her labs are unremarkable. Her caregiver will be with her throughout the rest of the week. They are going to call Dr. Rivera's office today for a follow-up appointment by the end of the week or Saturday. Return precautions provided. They both verbalized understanding. All questions are sought and answered. Patient is stable for discharge. Departure Impression Primary Impression: C. difficile colitis Additional Impression: Hyponatremia Disposition: 01 HOME, SELF-CARE Condition: Improved Departure-Patient Inst. Decision time for Depature: 11:21 Referrals: DOROTHEA RIVERA MD (PCP/Family) Primary Care Physician Patient Instructions: Clostridioides difficile ED Add. Discharge Instructions: No more Imodium at home. Push oral fluids so that you do not get dehydrated. You can also add a little extra salt to your food at home over the next week. Vancomycin 125 mg 4 times a day for the next 10 days. You have been given your first dose here in the emergency department. If you feel faint, have palpitations or get extremely lightheaded with standing up or experience increasing abdominal pain with nausea and vomiting please come back to the emergency department for reevaluation and admission. Please call Dr. Rivera's office today for a follow-up appointment by the end of the week or next Rolando. Scripts Vancomycin HCl (Vancomycin HCl) 125 Mg Capsule 125 MG PO QID, #40 CAP Prov: JESSICA GRANGER MD 06/19/22 Copy Copies To 1: DOROTHEA RIVERA MD, KATHRYN M MD Jun 19, 2022 09:26
[2022-06-19 09:42] LABS: POTASSIUM 3.3 MMOL/L (3.6-5.0)
[2022-06-19 09:43] LABS: CALCIUM 8.8 MG/DL (8.5-10.1)
[2022-06-19 09:48] LABS: CREATININE SERUM 0.86 MG/DL (0.60-1.30)
[2022-06-19 10:10] LABS: BILIRUBIN,URINE NEGATIVE (NEGATIVE); CLARITY,URINE CLEAR; COLOR,URINE YELLOW; GLUCOSE, URINE (UA) NEGATIVE (NEGATIVE); KETONES,URINE NEGATIVE (NEGATIVE); LEUKOCYTE ESTERASE ,URINE 3+ (NEGATIVE); NITRITE,URINE NEGATIVE (NEGATIVE); PROTEIN,URINE NEGATIVE (NEGATIVE)
[2022-06-19] MEDS ORDERED: NS IV 500 ML 500 ML IV SCH (10:15)
[2022-06-19 10:24] LABS: RBC,URINE RARE /HPF
[2022-06-19 10:25] LABS: BACTERIA,URINE MODERATE /HPF; SQUAMOUS EPITHELIAL CELL,UR >50 /HPF; WBC,URINE 25-50 /HPF
[2022-06-19] MEDS ORDERED: VANCOMYCIN 125 MG CAPSULE PO STA (11:00)
[2022-06-19] MEDS ORDERED: VANC125C5 PO (11:23)
== END 2022-06-19 11:34 | disposition home or self-care (01) ==
LOC: EDUNIT# 08:50 → ER 08:52
DX: A04.72 Enterocolitis due to Clostridium difficile, not specified as recurrent (principal); E87.1 Hypo-osmolality and hyponatremia; Z87.891 Personal history of nicotine dependence
CPT/HCPCS: 36415; 80048; 81000; 82274; 87015; 87045; 87046; 87077; 87088; 87186; 87324; 87328; 87329; 87449; 87493; 87899